=== PATIENT | female | born 1940 | race Caucasian/White ===

== ENCOUNTER 2016-10-27 20:15 | Inpatient (IN) | payer MEDICARE, OTHER ==
[~2016-10-27] VITALS: Ht 160 cm; Wt 62.0 kg
[2016-10-27] VITALS (9 sets, daily range): BP systolic 82–109; BP diastolic 47–70; PULSE 68–77; RESP 14–24; O2SAT 90
[~2016-10-27 20:15] MED LIST: AMT25T PO; ASPI-973 PO; ATRV10T PO; Atropine 1 mg/10 mL (Code) Syringe ONE; EPINEPHrine 0.1 mg/mL 10 mL Syringe ONE; GLUC100016 PO; Heparin 1,000 Unit/mL 10 mL Inj ONE; Heparin 1,000 Units/500 mL NS Premix IV ONE; Heparin 10,000 Unit/1,000 mL NS Premix IV ONE; LOSA25TA21 PO; METF1000 PO; Nitroglycerin 50,000 mcg/250 mL D5W Premix IV ONE; OMEG-86 PO; Phenylephrine/NS-PF 100 mCg/mL 5 mL Syringe IVPUSH ONE; RANI150T11 PO; SYN75 PO
[2016-10-27] MEDS ORDERED: NitroPRUSSIDE 25,000 mCg/mL 2 mL Inj IV ONE (20:21)
[2016-10-27] MEDS ORDERED: 0.9% Sodium Chloride 250 ML ONE (20:21)
--- NOTE | 2016-10-27 20:31 | ED.REPORT ---
HPI-Chest Pain 40 and Over Date of Service Oct 27, 2016 ED Provider: Dr. Pike The pt is a 76 y/o female with a hx of angina (in 2009, no sx since), HTN, and Type II DM who presents to the ED via EMS complaining of sudden left sided chest pain that radiates to her left arm and left side of the neck, onset an hour ago. The pt began experiencing the pain when her left TM ruptured at urgent care, where she had gone complaining of earache, onset 4 hours ago. She was sent to [facility] where her ECG showed ST elevation. As per the EMS, the pt was given metoprolol, morphine and heparin en route which decreased her pain significantly. In the ED, the pt reports mild pressure on her torso and persistent left sided neck pain. The pt takes baby aspirin. Asprin, heparin and metoprolol given at [facility] ED before transfer. [facility] ECG shows NSR, ant/lat ST elevation consitent with STEMI. Nursing Notes Stated Complaint: STEMI Chief Complaint: Chest Pain Nursing Notes Reviewed: Yes Allergies: Coded Allergies: ciprofloxacin (Verified Allergy, Severe, itching all over, throat closing. , 04/29/15) Scheduled Amitriptyline (Amitriptyline) 25 Mg Tab 25 MG PO HS Aspirin (Aspirin) 81 Mg Tablet 81 MG PO DAILY Atorvastatin (Lipitor) 10 Mg Tab 10 MG PO DAILY Glucosamine Sulfate 2Kcl (Glucosamine) 1,000 Mg Tablet 1,000 MG PO DAILY Levothyroxine (Synthroid) 75 Mcg Tablet 75 MCG PO DAILY Losartan Potassium (Losartan Potassium) 25 Mg Tablet 25 MG PO DAILY Metformin (Glucophage) 1,000 Mg Tablet 1,000 MG PO BID Huntington-3S/Dha/Epa/Fish Oil/D3 (Fish Oil + D3 Softgel) 1 Each Capsule 1 EACH PO DAILY Ranitidine (Zantac) 150 Mg Tablet 150 MG PO DAILY General Time Seen by MD: 20:15 Chief Complaint Chest pain Hx Obtained From: Patient, EMS Arrived By: Ambulance Sudden in Onset?: Yes Onset Occurred: 1 - 4 hours ago Symptom Duration: Since onset Location: : Chest left Quality: Painful Radiation: : Arm left: Neck Severity: Current: No pain currently Severity: Maximum: Severe Recent Healthcare: No recent doctor visit Past Medical History Past Medical History Angina in 2006 On Estring Reports: Diabetes mellitus, Hypertension Past Surgical History Resection in 2006 for Diverticulitis Foot Neck Reports: Appendectomy Smoking History Never Smoker Review of Systems Reports: left TM rupture Cardiovascular: Reports: Chest pain Musculoskeletal: Reports: Extremity pain (left arm), Neck pain (left sided) Complete sys rev & neg: except as marked. Ears / Nose / Throat: Reports: Earache left Physical Exam Initial Vital Signs Vital Signs (First) Date Time Temp Pulse Resp B/P Pulse Ox O2 Delivery O2 Flow Rate FiO2 10/27/16 20:18 37 77 24 109/70 90 Room Air Initial VS: Reviewed Head / Eyes: Atraumatic, Normocephalic Neck: Supple, Non-tender, Full range of motion Extremities: Vascular intact, Neuro intact, No swelling, No tenderness Skin: Warm, Dry, No cyanosis Neurologic: Alert, Oriented, Nonfocal General/Constitutional: Awake, Alert, Well appearing, Cooperative Diaphoretic Respiratory / Chest: Atraumatic, Breath sounds NL, Breath sounds = bilat, No respiratory distress, No rales, No rhonchi, No wheezing Cardiovascular: Heart rate NL, Regular rhythm, Heart sounds NL, No gallop, No murmurs, No rubs, Peripheral circulation NL, Pulses = bilaterally, No gross BP differential Abdomen: Atraumatic, Soft, Non-tender, McBurney's non-tender, No guarding, No rebound, BS normoactive, No distention ENT: Atraumatic, Mucous membranes moist, Pharynx NL Acute left TM rupture. Interpretation & Diagnostics ECG Interpretation ECG Interpretation: ST elevation in AVL, V2 through V5 Sinus rhythm. Rate 74. Time: 20:25 Interpreted by: ED physician Re-Eval/Medical Decision Source of Hx: Old records Consultation #1: Referral / Consult Name: Vishal Nolen MD Consulted With: Cardiology Call Returned at: 19:46 Photolithographic Stripper: Will see patient Note: Dr. Noeln agrees it is a STEMI. He will see the pt. Consultation #2: Referral / Consult Name: Vishal Nolen MD Consulted With: Cardiology Call Returned at: 20:35 Photolithographic Stripper: Requested research lab assistant Note: Dr. Nolen in the ED. Pt taken to research lab assistant Counseled Regarding: Diagnosis Discharge & Departure Primary Impression: STEMI (ST elevation myocardial infarction) Involved coronary artery: unspecified coronary artery Qualified Code: I21.3 - ST elevation (STEMI) myocardial infarction of unspecified site Disposition: ADMITTED TO HOSPITAL Referrals: Madyson Hdez PA-C (PCP) Crit Care Except Billable Proc Time Spent: 30-74 minutes Services Performed: Patient management by me, Time spent at bedside, Reviewing test results, Reviewing imaging, Discussing patient care, Documentation in record Critical Care Notes: I saw this patient immediately on arrival and was involved in her care through the duration of he ED stay. Scribe Attestation Portions of this note were transcribed by Kenia Ritter. I,, personally performed the history,physical exam and medical decision-making;I reviewed and confirmed the accuracy of the information in the transcribed note. Signed by Anastasiya Bradley. 10/27/16 copies to: Madyson Hdez PA-C, Donald L MD Oct 27, 2016 20:31 Kenia Ritter Oct 27, 2016 20:36
[2016-10-27] MEDS ORDERED: Ondansetron 2 mg/mL 2 mL Inj ONE (20:42)
[2016-10-27] MEDS ORDERED: fentaNYL-PF 50 mCg/mL 2 mL Inj ONE (20:50)
--- NOTE | 2016-10-27 21:48 | CS94 ---
[address] [address] DIAGNOSTIC CARDIAC CATHETERIZATION PATIENT: MARLINE MOMIN I : 1940 MR#: [id number] ADMIT: 10/27/2016 JOB ID: [id number] SERVICE DATE: 10/27/2016 PROCEDURE: Selective right and left coronary angiography, left heart catheterization. INDICATION: Acute coronary syndrome. PROCEDURAL DETAILS: The reader and the coders are referred to the procedure log for complete details. Briefly, a 6-Armenian system, right femoral approach. ANGIOGRAPHIC FINDINGS: 1. Right coronary artery is dominant, free of any significant disease. Mild luminal irregularities are noted. 2. LAD transapical vessels. Mild luminal irregularities of 10% to 20% in the mid segment past the second major diagonal. No critical stenosis is noted. 3. Circumflex is a nondominant, small vessel free of any significant disease. 4. Left heart catheterization revealed an LVEDP that ranged from 27-30. Hand injection showed hypercontractile basal constrictors with the distal half of the LV ring akinetic to dyskinetic suggestive of stress cardiomyopathy. In summary, no significant fixed epicardial coronary artery disease.
--- NOTE | 2016-10-27 21:57 | CONS ---
[address] [address] CONSULTATION REPORT PATIENT: MARLINE MOMIN I : 1940 MR#: [id number] ADMIT: 10/27/2016 JOB ID: [id number] DATE OF SERVICE: CHIEF COMPLAINT: Chest pain. REQUESTED BY: Yosef Pike MD. HISTORY OF PRESENT ILLNESS: This patient was in her usual state of health until about quarter to seven today. She went to the urgent care because of earache. She started having chest pain. She was transferred to [facility] ED where an EKG was suggestive of acute anterolateral TN. Those EKGs were faxed to me. One of the two EKGs showed ST-segment elevation in I and aVL with slight ST elevation in V2. lab manager team was activated. At the time of my interview in the ED, the patient's pain has settled. She was pain free. In the ED, she was quite diaphoretic. She also complained of nausea. The patient states about 10 years ago, she was diagnosed with angina. She does not have any usual cardiac followup. This chest discomfort started today. She has not been having exertional- type symptoms in the preceding weeks and months. She is moderately active. She denies any orthopnea, PND. PAST MEDICAL HISTORY: Significant mainly for diabetes and hypertension. MEDICATIONS AT HOME: Metformin, losartan. She takes a pill for cholesterol. ALLERGIES: CIPRO. REVIEW OF SYSTEMS: Comprehensive review of system was done. Pertinent negatives are no upcoming surgeries. No TIA or strokes. No GI bleeding. Occasionally she gets urinary bleeding, but she was told this was secondary to an urinary tract infection. FAMILY HISTORY: Negative for premature coronary artery disease. Her brother has had an EP procedure done. EXAMINATION: Mildly distressed. Somewhat anxious elderly lady. Pulse 90, blood pressure 110/70. Neck supple. No JVD. Chest: Clear. Heart sounds S1, S2, regular. Abdomen soft. Extremities: Negative for CCE, 2+ femoral pulses bilaterally. 911 EMERGENCY DISPATCHER: Alert and oriented. EKG as described. The repeat EKG done at [facility] showed normalization of her ST-segment elevation. ASSESSMENT AND PLAN: My initial assessment for this patient was that she was having a stuttering infarct. She probably had a ruptured plaque which led to the ST-segment elevation. After discussing with the patient and explaining the pros and cons, she agreed for proceeding ahead with urgent angiography. Angiography did not reveal any significant epicardial coronary artery disease. The details about the angiogram are reported elsewhere. Her left ventriculogram, however, was highly suggestive of stress cardiomyopathy. The patient will be admitted to the hospitalist service. In addition to her losartan, I would recommend adding beta-blockers. Rest of the management is per full discretion of hospitalist team and Cardiology will follow along with. An echo should be requested tomorrow and perhaps a repeat one within 3-5 days.
[2016-10-27] MEDS ORDERED: 0.9% Sodium Chloride 1,000 ML IV PRN (22:11)
[2016-10-27] MEDS ORDERED: Ondansetron 2 mg/mL 2 mL Inj IVPUSH PRN (22:25)
[2016-10-27] MEDS ORDERED: Polyethylene Glycol (PEG) 17 Gm Powder PO PRN (22:25)
[2016-10-27] MEDS ORDERED: Alum-Mag Hydrox-Simeth 30 mL Suspension PO PRN (22:25)
[2016-10-27] MEDS ORDERED: Glucose 40% Oral Gel 15 Gm Tube PO PRN (22:30)
[2016-10-27] MEDS ORDERED: Dextrose 10% 250 ML IV PRN (22:35)
[2016-10-27] MEDS ORDERED: Atropine 1 mg/10 mL (Code) Syringe IVPUSH PRN (22:40)
[2016-10-27] MEDS: Ondansetron 2 mg/mL 2 mL Inj IVPUSH PRN ×2 (22:45→23:41)
[2016-10-27] MEDS: Insulin LISPRO 300 Unit/3 mL Inj SUBQ SCH (23:28)
[2016-10-27 23:33] LABS: TROPONIN T 0.589 ug/L (0.0-0.011)
[2016-10-27] MEDS: 0.9% Sodium Chloride 250 ML IV PRN (23:41)
--- NOTE | 2016-10-27 23:49 | PCM.HPMED ---
Subjective Date of Service Oct 27, 2016 Primary Provider: Admitting Physician: Delmar Skelton MD Primary Care Physician: Madyson Hdez PA-C Attending Physician: Delmar Skelton MD Admit Status: From the Emergency Department, [facility] Telemetry Chief Complaint: left ear pain, chest pressure, SOB History of Present Illness: Ms. Lesly Wilson is an extremely pleasant 76-year-old female with a history of type II diabetes with polyneuropathy, hypothyroidism, hypertension, and hypothyroidism, presented to her PCP, then transitioned to [facility], with chief complaint of sudden onset of left-sided chest pain with radiation to her left arm and left side of neck, which followed the rupture of her left tympanic membrane. Initial EKG performed at [place] revealed ST elevation, patient was immediately given metoprolol, morphine, and heparin. Stat cath completed at our facility revealed a likely etiology of her chest pain as stress -induced cardiomyopathy, without any evidence of coronary artery disease. She was admitted for evaluation and treatment of stress-induced cardiomyopathy in the setting of suspected underlying otic infection. - Hospital day 1 Patient states that she has been experiencing earache throughout the day of admission, and was told by her primary care provider that she was suffering from a viral infection. Subsequently, she noticed the pressure within her left ear began to increase, reports a fluidlike sensation, and then reports that her tympanic membrane had ruptured. Immediately following this instance, she notes that she began to experience left-sided chest pain with radiation to left arm and left-side of neck. Patient also noted diaphoresis, nausea; denied any associated fever, chills. Denies any recent exposure to water sources, such as ocean or lakes, denies any recent travel at elevated altitudes, and denies any recent trauma to her left ear. Immediately after experiencing the rupture of her tympanic membrane, she reports that she began to bleed from her ear canal. She admits to mild URI symptoms, and she states that her was recently ill with similar symptoms. She was received as a transfer from [facility] to our emergency department , where cardiology proceeded with a stat catheterization. In route, she was reported to have received 5 mg metoprolol 3, morphine sulfate, and heparin. Stat cath did not reveal any coronary artery disease, and likely diagnosis is stress-induced cardiomyopathy based on the akinetic findings of the apex. She was transferred to [facility] in stable condition from the [facility], and was in stable condition at time of admission. Review of Systems: Complete review of systems obtained, pertinent positives and negatives as noted in history of present illness Allergies Coded Allergies: ciprofloxacin (Verified Allergy, Severe, itching all over, throat closing. , 04/29/15) Home Medications Medications obtained from PCP note dated 10/27/2016: Gabapentin 800 mg daily Ambien 5 mg nightly Carisoprodol 350 mg every 8 hours as needed for muscle pain Coenzyme Q 10 100 mg daily Cozaar 25 mg Estring vaginal insert 2 mg as directed Folic acid 400 g daily Glucosamine/chondroitin 1500/1200 mg complex daily Latanoprost eyedrops 2.5 ml one drop each eye once a day Metformin 1000 mg twice daily Daily multivitamin Nitroglycerin 0.4 mg sublingual as needed Probiotic daily Synthroid 75 g 1 tablet daily on empty stomach Tumor or 100 mg twice daily Acetaminophen 325 mg as needed every 6 hours for pain Vitamin D 1000 international units daily Aspirin 81 mg daily Atorvastatin 10 mg nightly PMH Reported: *Participate Post menopausal atrophic vaginitis Essential hypertension Hypothyroidism Hyperlipidemia Nontoxic goiter Type II diabetes mellitus with neuropathy Dysphagia Surgical History Bowel resection with complete anastomosis secondary to diverticulitis Appendectomy Family History Report: A strong family history of diabetes in multiple family members; father at age 83 secondary to Hodgkin's lymphoma; mother at age 79 secondary to emphysema; brother is reported to have an unspecified tachycardia, whom have completed intervention, which sounds similar to an ablation. Patient is uncertain of the details regarding the diagnosis of procedure Social History Hx Alcohol Use: No Hx Substance Use: No Hx Tobacco Use: Yes Smoking Status: Former Smoker (quit many years ago) Living Arrangement: with Family (; local) Exam Vital Signs Vital Sign - Last Date Time Temp Pulse Resp B/P Pulse Ox O2 Delivery O2 Flow Rate FiO2 10/27/16 21:46 36.5 76 17 97/66 90 Nasal Cannula 3.00 Exam General: Alert and oriented 3; pleasant woman resting supine in bed in no acute distress Ears: Right ear unremarkable with some cerumen within canal no evidence of external trauma; left ear is no evidence of external trauma, canal dried blood noted, no pain with mobilization of pinna, no exudate noted, no clear direct visualization of perforation secondary to remaining cerumen and dried blood HENT: Atraumatic, normocephalic, sclera anicteric, membranes moist Neck: Full range of motion without pain Cardiac: Regular rate and rhythm at time of examination without any appreciable murmurs Respiratory: Equal and adequate airflow all aquino without any wheeze or rhonchi ; no use of accessory muscles Chest: Atraumatic without any reproducible pain with palpation Abdomen: Soft, nontender, nondistended Extremities: No edema appreciated; right leg in soft restraint Skin: Warm and dry MSK: 5/5 strength 4/4 extremities at major joints of the shoulder on upper left ; right lower extremity restricted by restraint Neuro: Cranial nerves II-XII grossly intact, speech without slur, facial expressions equal and symmetric Psych: Appropriate mood, affect, and responses to questions; good insight and judgment Assessment & Plan Ms. Lesly Wilson is an extremely pleasant 76-year-old female with a history of type II diabetes with polyneuropathy, hypothyroidism, hypertension, and hypothyroidism, presented to her PCP, [facility], with chief complaint of sudden onset of left-sided chest pain with radiation to her left arm and left side of neck, which followed the rupture of her left tympanic membrane. Initial EKG performed at [place] revealed ST elevation, patient was immediately given metoprolol, morphine, and heparin. Stat cath completed at our facility revealed a likely etiology of her chest pain as stress-induced cardiomyopathy. She was admitted for evaluation and treatment of stress- induced cardiomyopathy in the setting of suspected underlying otic infection. - Hospital day 1 Stress-induced cardiomyopathy, acute, present on admission, under evaluation - CC: Left-sided chest pain with radiation to left upper extremity and neck; stat EKG was indicative of ST elevation in leads V2-V5 - Stat cath: 10/27/2016 revealed findings indicative of stress-induced cardiomyopathy - Cardiology recommendations: Continue losartan, add beta arvind, echo tomorrow , with repeat echo in approximately 3-5 days - Echo for 10/28/2016 ordered - Initiation of carvedilol 6.125mg daily - Continue ASA 81mg daily, losartan 50mg daily - Possible etiologies: underlying infection, endocrine aberrancy; eval thyroid and treat infxn/otitis Left tympanic membrane rupture, acute, present on admission, under evaluation - Patient had evidence of blood within left ear canal - Patient reports URI/viral infection as etiology, as discussed with her primary care - We will obtain respiratory swab to further delineate viral versus bacterial etiology for her vague/mild URI sx - Also initiation of Augmentin x14d, as pt is diabetic, risk for pseudomonas otitis - No otic ofloxacin secondary to pt allergy to fluoroquinolones - Strong consideration of ENT referral for prompt/stat FU when discharged - Pt reports established with Dr. Cruz in [place]- pt would like to be seen by his practice if possible - CBC with PCT in am History of diabetes with peripheral nephropathy, non-insulin using, chronic, presumed stable - Home medications include metformin - Holding metformin during hospitalization - Institution of low-dose correctional scale - Gabapentin 800 mg nightly Hypertension, chronic, presumed stable - We will resume home medications, including losartan, and initiation of metoprolol secondary to stress-induced cardiomyopathy treatment - Resume home medications when reconciliation complete and when appropriate Insomnia, chronic, presumed stable - Patient reports new medication of Ambien to help with sleep aid - Due to patient's naivety to medication, we will not initiate this medication during this hospitalization - Attempt gabapentin, and other modalities for sleep Med rec not yet completed at time of admission PRN fever, bowel, nausea, pain DVT: Hep gtt per cardiology; transition to subcutaneous when appropriate Diet: Heart/carb GI: H2B IVF: NS 100 Code: FULL CODE Patient status: Patient is admitted under inpatient status with expected length of stay greater than 2 midnights due to severity of presenting symptoms, risk of adverse event, and complexity of treatment plan. Pain Evaluation: Adequate Pain Control GI Prophylaxis: H2 arvind VTE Prophylaxis: Other (hep gtt) Resuscitation Status: CPR: Attempt Resuscitation Attending Statement The patient was seen and examined together with house staff on 10/27/2016 and I agree with the history, exam and plan as outlined in the note above. Tasha Jean Baptiste DO Oct 27, 2016 22:23 Rena Liz DO Oct 28, 2016 04:20
[2016-10-27] MEDS ORDERED: Albuterol 2.5 mg/3 mL Inhalation Solution NEB PRN (23:55)
[2016-10-28] VITALS (18 sets, daily range): BP systolic 96–124; BP diastolic 48–94; PULSE 71–103; RESP 14–26; O2SAT 89–100
[2016-10-28] MEDS ORDERED: Heparin Initial Bolus IVPUSH ONE (01:00)
[2016-10-28] MEDS: Heparin 25K Unit/500mL 0.45 NS 25,000 UNIT in IV Premix 1 EACH IV SCH (01:15)
[2016-10-28] MEDS ORDERED: MULT-666 PO (03:47)
[2016-10-28] MEDS ORDERED: NITR0.4T38 SL (03:47)
[2016-10-28] MEDS ORDERED: CHOL100045 PO (03:47)
[2016-10-28] MEDS ORDERED: ESTR1VAG VG (03:47)
[2016-10-28] MEDS ORDERED: SOMA350 PO (03:47)
[2016-10-28] MEDS ORDERED: LACT1CAP73 PO (03:47)
[2016-10-28] MEDS ORDERED: tumeric PO (03:47)
[2016-10-28] MEDS ORDERED: GLUC-120 PO (03:47)
[2016-10-28] MEDS ORDERED: FOLI0.4T2 PO (03:47)
[2016-10-28] MEDS ORDERED: UBID1CAP52 PO (03:47)
[2016-10-28] MEDS ORDERED: lantanoprost OCULAR (03:47)
[2016-10-28] MEDS ORDERED: ACET325T51 PO (03:47)
[2016-10-28 04:25] LABS: BASOPHILS % (AUTO) 0.1 % (0-3); EOSINOPHILS % (AUTO) 0.1 % (0-5); MONOCYTES % (AUTO) 6.2 % (4-12); Mean Corpuscular Hemoglobin 29.8 pg (27.0-35.0); Mean Corpuscular Volume 89.4 fL (81-100); NEUTROPHILS % (AUTO) 73.2 % (40-74); Platelet Count 273 bil/L (150-400)
[2016-10-28 04:43] LABS: APPEARANCE,URINE CLEAR (CLEAR,HAZY); COLOR,URINE YELLOW (YELLOW); OCCULT BLOOD,URINE NEGATIVE (NEGATIVE); PH,URINE 6.5 (5.0-8.0); UROBILINOGEN,URINE NORMAL (NORMAL)
[2016-10-28 04:56] LABS: Phosphorus 3.3 mg/dL (2.5-4.9)
[2016-10-28] MEDS: Heparin Protocol Boluses IVPUSH PRN ×2 (08:42→19:59)
[2016-10-28] MEDS: Insulin LISPRO 300 Unit/3 mL Inj SUBQ SCH ×4 (08:44→22:29)
[2016-10-28 09:19] LABS: TROPONIN T 0.55 ug/L (0.0-0.011)
[2016-10-28] MEDS: Amoxicillin-Clav 875-125 mg Tablet PO SCH ×2 (09:47→19:59)
[2016-10-28] MEDS: Ondansetron 2 mg/mL 2 mL Inj IVPUSH PRN (09:49)
--- NOTE | 2016-10-28 09:54 | DRSVH ---
PROCEDURE: X-RAY CHEST ONE VIEW, PORTABLE ([id number]) INDICATIONS: dropping O2 sats TECHNIQUE: One view of the chest was acquired. COMPARISON: None. FINDINGS: Surgical changes and devices: None. Lungs and pleura: Upper lobe airspace disease is identified. There is a prominent vascular markings within the perihilar regions. Curly B-lines are noted along the lateral margins of the lower lobes. There may be a trace left-sided pleural effusion. There is no pneumothorax. Mediastinum: Mediastinal contours appear normal. Heart size is normal. Bones and chest wall: No suspicious bony lesions. Overlying soft tissues appear unremarkable. IMPRESSION: 1. Upper lobe airspace disease is most suggestive of pneumonia. Hypersensitivity pneumonitis or aty pical presentation of pulmonary edema may also have this appearance. 2. Moderate pulmonary vascular congestion. Chari B-lines are suggestive of pulmonary edema. Pleas e correlate clinically. Dictated by: Rolf Disla M.D. on 10/28/2016 at 8:48 Approved by: Rolf Disla M.D. on 10/28/2016 at 8:53
[2016-10-28] MEDS ORDERED: Furosemide 10 mg/mL 2 mL Inj IVPUSH ONE ×3 (10:05→16:30)
[2016-10-28] MEDS ORDERED: Promethazine Inj 12.5 MG in Dextrose 5%-Pha MIX 50 ML IV PRN (10:35)
--- NOTE | 2016-10-28 11:19 | ABG ---
DateTimeAnalyzed 11:11:00 -_ pH ____7.397 - 7.350 7.450 pCO2 ___35.5__ -mmHg 35.0 45.0 pO2 ___52.2__ -mmHg 69.0 116 HCO3- ___21.4__ -mmol/L 22.0 26.0 ABE ___-2.3__ -mmol/L -2.0 2.0 tHb ___13.5__ -g/dL 12.0 18.0 O2Hb ___84.6__ -% COHb ____0.7__ -% 0.0 1.5 MetHb ____1.2__ -% 0.4 1.5 sO2 ___86.2__ -% FIO2 __100.0__ -% Drawn By NB - Date/Time Notified____ 11:18:00 -_ Oxygen Device 1 OXYMASK @15 - Notified By NB - Not[facility] Whom ___[facility] - B 758 -mmHg tO2 ___16.1__ -Vol% Juanito test _Positive -
--- NOTE | 2016-10-28 13:14 | DRSVH ---
[facility] [address] [place] [address] Echocardiogram Report Name: MARLINE MOMIN Alexx e: 10/28/2016 Height: 63 in Hospital Exam Location: [facility] Weight: 143 lb Gender: Other BSA: 1.7 m2 : 1940 Age: 76 yrs BP: 111/57 mmHg Reason For Study: Chest pain, [place] Ordering Physician: Performed By: Vincent Hodges Referring Physician: JUANJOSE BETTS Interpretation Summary 1) Normal left ventricular thickness and size with severely reduced systolic function (EF 25-30%). 2) Severe global hypokinesis of the apical 2/3 of the LV. 3) No significant valvular abnormalities. 4) Compared to the Echo done 07/23/2016, LV function has decreased from normal to severely reduced on today's study. Procedure: A two-dimensional transthoracic echocardiogram with color flow and Doppler was performed. The study quality was technically adequate. Comparison is made with the echocardiogram of 07/23/16. The patient was in normal sinus rhythm during the exam. Left Ventricle: The left ventricle is normal in size. There is normal left ventricular wall thickness. Proximal septal thickening is noted. The ejection fraction is estimated to be 25-30%. There is severe global hypokinesis of the apical 2/3 of the LV. Right Ventricle: The right ventricle is grossly normal size. The right ventricular systolic function is normal. Atria: The left atrium is mildly dilated. Right atrium is small. The interatrial septum is intact with no evidence for an atrial septal defect. Mitral Valve: The mitral valve leaflets are slightly calcified. There is mild mitral regurgitation. Aortic Valve: The aortic valve is trileaflet. The aortic valve opens well. There is no aortic valve stenosis. No aortic regurgitation is present. Tricuspid Valve: The tricuspid valve is not well visualized, but is grossly normal. There is mild tricuspid regurgitation. The right ventricular systolic pressure is estimated at 34 mmHg assuming a right atrial pressure of 3 mm Hg. Pulmonic Valve: The pulmonic valve is not well visualized. There is a trace or physiologic amount of pulmonic regurgitation. Great Vessels: The aortic root is normal size. The dimensions of the ascending aorta are normal. The pulmonary artery is not well visualized, but is probably normal size. The IVC is of normal diameter and collapses greater than 50% with a sniff. This suggests a low right atrial pressure of 3 mm Hg. Pericardium/ Pleura There is no pericardial effusion. There is an anterior echo-free space consistent with a fat pad. There is no pleural effusion. MMode/2D Measurements & Calculations LA A2 area RA long axis LVOT diam: 2.0 cm EDV(MOD-sp2) AoV Openin.7 cm Ao root diam: 3.0 cm ESV(MOD-sp2) LA A4 area RA area: 7.2 cm asc Aorta Diam: 3.0 cm RA vol: 14.7 ml Ao Arch Diam (Prox EF(MOD-sp2) LA length (vol) RA : 8.8 ml/m2 Trans): 2.3 cm LA vol: 68.5 ml LA vol index IVC diam: 2.2 cm Doppler Measurements & Calculations Ao V2 max MV E max chapincito MV E/A: 0.63 TR max [place] : 90.8 cm/sec : 42.1 cm/sec Med Peak E' [place] : 278.2 cm/sec Ao max PG MV A max chap[place] TR max P.0 mmHg : 3.3 mmHg : 66.6 cm/sec E/E' med: 7.7 PA V2 max: 61.3 cm/sec Ao mean PG Lat Peak E' [place] PA mean P.96 mmHg LVOT Max [place] E/E' lat: 7.1 : 77.5 cm/sec E/e' average: 7.4 TALISHA(I,D): 2.8 cm sev ratio Ao V2 mean LV V1 max PG PA V2 mean TALISHA indexed to BSA : 66.6 cm/sec : 47.5 cm/sec (cm^2/m^2): 1.6 Ao V2 VTI LV V1 VTI PA pr(Accel) : 13.5 cm : 45.7 mmHg TALISHA(V,D): 2.6 cm2 Reading Physician:01:13 PM
--- NOTE | 2016-10-28 14:15 | PCM.PNCARD ---
Subjective Date of service Oct 28, 2016 Chief Complaint NSTEMI, heart failure History of Present Illness 76 yo W h/o DM-2 and HTN admitted with NSTEMI and newly diagnosed non-ischemic cardiomyopathy. Subjective: Patient continues to have respiratory distress. She is sleepy and mildly agitated. Exam Vital Signs Vital Sign - Last Date Time Temp Pulse Resp B/P Pulse Ox O2 Delivery O2 Flow Rate FiO2 10/28/16 12:15 Supplement Oxygen 10/28/16 12:15 36.8 93 22 114/94 93 10/28/16 08:30 10.00 Intake and Output 10/27/16 10/27/16 10/28/16 Cumulative From/Thru 15:00 23:00 07:00 10/27/16 20:18 - 10/28/16 05:14 Intake Total 932 ml 932 ml Output Total 350 ml 350 ml Balance 582 ml 582 ml Intake Oral 100 ml 100 ml IV Total 832 ml 832 ml Output Urine Total 350 ml 350 ml General appearance: in mild respiratory distress, elderly, pleasant, cooperative HEET: Normocephalic atraumatic, no scleral icterus, tongue midline, mucous membranes moist Neck: supple Cardiovascular: RRR, normal S1 and normal S2, no murmurs/ rubs/gallops, PMI nondisplaced, no JVD, no peripheral edema Respiratory: Fair aeration, coarse b/l Abdomen: Soft, nontender, nondistended, + bowel sounds Neuro: Alert, no facial droop, tongue midline, no gross motor deficits Lab and Diagnostics Labs Troponin 0.589 on admission (10/27/2016) and 0.550 on 10/28/2016 Result Diagram: 10/28/16 0355 10/28/16 0805 X-Rays, CTs and MRIs Echo 10/28/2016: 1) Normal left ventricular thickness and size with severely reduced systolic function (EF 25-30%). 2) Severe global hypokinesis of the apical 2/3 of the LV. 3) No significant valvular abnormalities. 4) Compared to the Echo done 07/23/2016, LV function has decreased from normal to severely reduced on today's study. Cath 10/27/2016: 1. Right coronary artery is dominant, free of any significant disease. Mild luminal irregularities are noted. 2. LAD transapical vessels. Mild luminal irregularities of 10% to 20% in the mid segment past the second major diagonal. No critical stenosis is noted. 3. Circumflex is a nondominant, small vessel free of any significant disease. 4. Left heart catheterization revealed an LVEDP that ranged from 27-30. Hand injection showed hypercontractile basal constrictors with the distal half of the LV ring akinetic to dyskinetic suggestive of stress cardiomyopathy. Assessment & Plan Assessment 76 yo W h/o DM-2 and HTN admitted with NSTEMI and newly diagnosed non-ischemic cardiomyopathy and NSTEMI: # Acute systolic heart failure: Etiology is nonischemic cardiomyopathy as coronary angiography did not show any obstructive coronary artery disease. Wall motion abnormalities could be suggestive of takotsubo cardiomyopathy but there is no clear stress event prior to this episode. LVEF 25-30%. Patient's chest x-ray showed significant volume overload and this is consistent with her respiratory distress. She is NYHA class IV, ACC stage III. Plan: - Give furosemide 20 mg IV 1 now and re-dose PRN q3-4 hours. Goal to be net negative 2L in 24 hours - Start spironolactone 12.5mg daily - Continue losartan 50mg daily (hs) - Continue carvedilol 3.125mg bid - Ok to be on heparin gtt for now given high risk for LV thrombus formation # Minimal CAD: - Continue aspirin 81mg daily - Continue atorvastatin 10mg qhs # HTN: well controlled. Meds as above. # Diabetes: defer management to primary team. Problems: Pain Evaluation: Adequate Pain Control GI Prophylaxis: H2 arvind VTE Prophylaxis: Other (hep gtt) VTE Mechanical Devices: Intermittant Pneumatic CD Resuscitation Status: CPR: Attempt Resuscitation Vishal Nolen MD Oct 28, 2016 14:15
--- NOTE | 2016-10-28 14:30 | ABG ---
DateTimeAnalyzed 14:22:00 -_ pH ____7.454 - 7.350 7.450 pCO2 ___32.3__ -mmHg 35.0 45.0 pO2 ___75.1__ -mmHg 69.0 116 HCO3- ___22.3__ -mmol/L 22.0 26.0 ABE ___-0.4__ -mmol/L -2.0 2.0 tHb ___13.7__ -g/dL 12.0 18.0 O2Hb ___93.0__ -% COHb ____0.7__ -% 0.0 1.5 MetHb ____1.3__ -% 0.4 1.5 sO2 ___94.9__ -% FIO2 __100.0__ -% Drawn By gj - Date/Time Notified____ 14:29:00 -_ Spontaneous_RR ___24.0__ -b/min Liter_Flow ___50.0__ -L/min Oxygen Device 1 HIGH FLOW - Notified Whom HASANDRAS - B 757 -mmHg tO2 ___17.9__ -Vol% Juanito test _Positive -
[2016-10-28 16:07] LABS: TROPONIN T 0.538 ug/L (0.0-0.011)
--- NOTE | 2016-10-28 18:05 | PCM.PNMED ---
Subjective Date of Service Oct 28, 2016 Subjective Ms. Lesly Wilson is an extremely pleasant 76-year-old female with a history of type II diabetes with polyneuropathy, hypothyroidism, hypertension, and hypothyroidism, presented to her PCP, [facility], with chief complaint of sudden onset of left-sided chest pain with radiation to her left arm and left side of neck, which followed the rupture of her left tympanic membrane. Initial EKG performed at [place] revealed ST elevation, patient was immediately given metoprolol, morphine, and heparin. Stat cath completed at our facility revealed a likely etiology of her chest pain as stress-induced cardiomyopathy. She was admitted for evaluation and treatment of stress- induced cardiomyopathy in the setting of suspected underlying otic infection. Patient underwent a stat cardiac catheterization last night and returned to floor without complications. This morning, patient complained of SOB and her oxygen saturation was dropping to the mid 80s. Auscultation of the lungs revealed diffuse crackles bilaterally. Stat CXR revealed pulmonary edema and possible pneumonia of the upper lobes. We diuresed the patient with Lasix. On ROS, patient complained of SOB, chest tightness, and nausea. Exam Vital Signs Vital Sign - Last Date Time Temp Pulse Resp B/P Pulse Ox O2 Delivery O2 Flow Rate FiO2 10/28/16 16:26 Supplement Oxygen 10/28/16 16:26 37.2 103 21 106/58 94 10/28/16 14:20 50 100 Intake and Output 10/27/16 10/27/16 10/28/16 Cumulative From/Thru 15:00 23:00 07:00 10/27/16 20:18 - 10/28/16 05:14 Intake Total 932 ml 932 ml Output Total 350 ml 350 ml Balance 582 ml 582 ml Intake Oral 100 ml 100 ml IV Total 832 ml 832 ml Output Urine Total 350 ml 350 ml Exam General: Patient is lying comfortably on bed, AAOX3, not in acute distress, cooperative and pleasant. HEENT: head normocephalic and atraumatic, PERRLA, EOMI, no scleral icterus, noninjected conjunctiva, evidence of nasal congestion, left ear with crusted blood on the external ear canal, evidence of ruptured tympanic membrane Neck: neck supple, non-tender, no lymphadenopathy, trachea midline, no JVD CV: regular rate and rhythm, s1 and s2 heard, no murmur, radial pulses 2+ and equal bilaterally, no rubs murmurs or gallops, no edema Lungs: Diffuse crackles bilaterally Abdomen: normoactive bowel sounds on 4Q, soft, non-distended, non-tender to palpation, no organomegally, Skin: warm and dry Musculoskeletal: 5/5 UE and LE strength bilaterally, full ROM bilaterally Neuro: Grossly neurologically intact, cranial nerves II through XII intact, Psych: Normal mood and affect IVs and Medications Medications Reviewed: Medications were reviewed in detail Medications High risk medications include a heparin drip Lab and Diagnostics Laboratory Tests Test 10/27/16 22:52 10/28/16 03:00 10/28/16 03:55 10/28/16 04:18 Activated Partial Thromboplast Time 37.3sec (22.8-33.0) Total Creatine Kinase 145U/L (21-215) Creatine Kinase MB 17.2ng/mL (0.0-5.3) Creatine Kinase MB % 11.9% (0.0-5.0) Troponin T 0.589ug/L (0.0-0.011) Urine Legionella pneumophilia Ag Negative (Negative) White Blood Count 12.7th/mm3 (3.8-10.1) Red Blood Count 3.96mil/mm3 (3.90-5.20) Hemoglobin 11.8g/dL (12.0-15.6) Hematocrit 35.4% (35.0-46.0) Mean Corpuscular Volume 89.4fL (81-100) Mean Corpuscular Hemoglobin 29.8pg (27.0-35.0) Mean Corpuscular Hemoglobin Concent 33.3% (32.0-37.0) Red Cell Distribution Width 13.1% (12.3-15.4) Platelet Count 273bil/L (150-400) Neutrophils (%) (Auto) 73.2% (40-74) Lymphocytes (%) (Auto) 19.9% (14-46) Monocytes (%) (Auto) 6.2% (4-12) Eosinophils (%) (Auto) 0.1% (0-5) Basophils (%) (Auto) 0.1% (0-3) Sodium Level 136mEq/L (134-144) Potassium Level 5.0mEq/L (3.5-5.2) Chloride Level 101mEq/L (97-108) Carbon Dioxide Level 20mmol/L (18-29) Blood Urea Nitrogen 20mg/dL (8-27) Creatinine 0.57mg/dL (0.57-1.00) Estimat Glomerular Filtration Rate 148mL/min (>59) Glucose Level 244mg/dL (60-99) Calcium Level 8.6mg/dL (8.5-10.1) Phosphorus Level 3.3mg/dL (2.5-4.9) Magnesium Level 2.0mg/dL (1.6-2.6) Total Bilirubin 0.2mg/dL (0.0-1.2) Aspartate Amino Transf (AST/SGOT) 32U/L (0-50) Alanine Aminotransferase (ALT/SGPT) 27U/L (0-32) Alkaline Phosphatase 90U/L (25-165) Total Protein 6.2g/dL (6.4-8.4) Albumin 3.7g/dL (3.4-5.0) Procalcitonin 0.07ng/mL (0.00-0.08) Thyroid Stimulating Hormone (TSH) 1.050uIU/mL (0.450-4.500) Urine Color Yellow (YELLOW) Urine Appearance Clear (CLEAR,HAZY) Urine pH 6.5 (5.0-8.0) Urine Specific [place] 1.010 (1.003-1.035) Urine Protein Negativemg/dL (NEG,TRACE) Urine Glucose (UA) Negativemg/dL (NEGATIVE) Urine Ketones Negativemg/dL (NEGATIVE) Urine Occult Blood Negative (NEGATIVE) Urine Nitrite Negative (NEGATIVE) Urine Bilirubin Negative (NEGATIVE) Urine Urobilinogen Normalmg/dL (NORMAL) Urine Leukocyte Esterase Small (NEGATIVE) Urine RBC 0-2/hpf (0-2) Urine WBC >50/hpf (0-5) Urine Epithelial Cells Moderate/hpf (NONE-MOD) Urine Crystals None seen (NONE SEEN) Urine Bacteria Few/hpf (NONE-FEW) Urine Hyaline Casts None/lpf (NONE) Urine Granular Casts None seen (NONE SEEN) Urine Waxy Casts None seen (NONE SEEN) Urine Red Blood Cell Casts None seen (NONE SEEN) Urine White Blood Cell Casts None seen (NONE SEEN) Urine Mucus None seen (None Seen) Urine Trichomonas None seen (NONE SEEN) Urine Yeast None (NONE SEEN) Urinalysis Comment None Urine Culture Reflexed Indicated Test 10/28/16 07:10 10/28/16 08:05 10/28/16 13:22 10/28/16 14:31 Activated Partial Thromboplast Time 36.4sec (22.8-33.0) 57.4sec (22.8-33.0) D-Dimer < 0.50mg/L FEU (<0.50) Sodium Level 134mEq/L (134-144) Potassium Level 4.9mEq/L (3.5-5.2) Chloride Level 99mEq/L (97-108) Carbon Dioxide Level 17mmol/L (18-29) Blood Urea Nitrogen 19mg/dL (8-27) Creatinine 0.52mg/dL (0.57-1.00) Estimat Glomerular Filtration Rate 165mL/min (>59) Glucose Level 218mg/dL (60-99) Calcium Level 8.5mg/dL (8.5-10.1) Total Creatine Kinase 183U/L (21-215) 175U/L (21-215) Creatine Kinase MB 22.1ng/mL (0.0-5.3) 18.5ng/mL (0.0-5.3) Creatine Kinase MB % 12.1% (0.0-5.0) 10.6% (0.0-5.0) Troponin T 0.550ug/L (0.0-0.011) 0.538ug/L (0.0-0.011) Procalcitonin 0.13ng/mL (0.00-0.08) Test 10/28/16 14:55 10/28/16 16:41 10/28/16 19:12 Lactic Acid Level 2.9mmol/L (0.4-2.0) Hold [place] Top Tube Received (Received) Hold Urine Received (Received) Activated Partial Thromboplast Time 46.2sec (22.8-33.0) Microbiology 10/28/16 Adenovirus DNA (PCR) - Final, Complete Not Detected 10/28/16 Coronavirus 229E PCR - Final, Complete Not Detected 10/28/16 Coronavirus HKU1 PCR - Final, Complete Not Detected 10/28/16 Coronavirus NL63 PCR - Final, Complete Not Detected 10/28/16 Coronavirus OC43 PCR - Final, Complete Not Detected 10/28/16 Influenza Type A (PCR) - Final, Complete Not Detected 10/28/16 Influenza Type B (PCR) - Final, Complete Not Detected 10/28/16 Human Metapneumovirus (PCR) (ALLISON) - Final, Complete Not Detected 10/28/16 Rhinovirus (PCR)(ALLISON) - Final, Complete Not Detected 10/28/16 Parainfluenza Virus Type 1 (PCR) - Final, Complete Not Detected 10/28/16 Parainfluenza Virus Type 2 (PCR) - Final, Complete Not Detected 10/28/16 Parainfluenza Virus Type 3 (PCR) - Final, Complete Not Detected 10/28/16 Parainfluenza Virus Type 4 (NAAT) - Final, Complete Not Detected 10/28/16 Respiratory Syncytial Virus (PCR)RI - Final, Complete Not Detected 10/28/16 Chlamydia pneumoniae (PCR) - Final, Complete Not Detected 10/28/16 Mycoplasma pneumoniae DNA Detection - Final, Complete 10/28/16 Urine Culture, Received Pending Result Diagram: 10/28/16 0355 10/28/16 0805 Microbiology Microbiology ADENOVIRUS RESPIRATORY PCR Final 10/28/16-1709 Not Detected CORONOVIRUS 229E Final 10/28/16-1709 Not Detected CORONOVIRUS HKU1 Final 10/28/16-1709 Not Detected CORONOVIRUS NL63 Final 10/28/16-1709 Not Detected CORONOVIRUS OC43 Final 10/28/16-1709 Not Detected INFLUENZA A PCR Final 10/28/16-1709 Not Detected INFLUENZA B PCR Final 10/28/16-1709 Not Detected METAPNEUMOVIRUS PCR Final 10/28/16-1709 Not Detected RHINOVIRUS OR ENTEROVIRUS PCR Final 10/28/16-1709 Not Detected PARAINFLUENZA 1 PCR Final 10/28/16-1709 Not Detected PARAINFLUENZA 2 PCR Final 10/28/16-1709 Not Detected PARAINFLUENZA 3 PCR Final 10/28/16-1709 Not Detected PARAINFLUENZA 4 PCR Final 10/28/16-1709 Not Detected CONTINUED ON NEXT PAGE RUN DATE: 10/28/[address] [facility] LIVE PAGE 2 RUN TIME: 1709 Specimen Inquiry PHYSICIAN Patient: LESLY WILSON Elaine [id number] (Continued) Specimen: [id number] Collected: 10/28/16 Received: 10/28/16 (Continued) Procedure Result Verified Site RESP SYNCYTIAL VIRUS PCR Final 10/28/16-1709 Not Detected Microbiology (Continued) CHLAMDOPHILIA PNEUMONIAE PCR Final 10/28/16-1709 Not Detected MYCOPLASMA PNEUMONIAE PCR Final 10/28/16-1709 MYCO PNEUMONIAE PCR Not Detected -------- X-Rays, CTs and MRIs Chest Xray IMPRESSION: 1. Upper lobe airspace disease is most suggestive of pneumonia. Hypersensitivity pneumonitis or atypical presentation of pulmonary edema may also have this appearance. 2. Moderate pulmonary vascular congestion. Chari B-lines are suggestive of pulmonary edema. Please correlate clinically. Dictated by: Rolf Disla M.D. on 10/28/2016 at 8:48 Approved by: Rolf Disla M.D. on 10/28/2016 at 8:53 Cardiac Echo Impressions ECHO on 10/28/16 Interpretation Summary 1) Normal left ventricular thickness and size with severely reduced systolic function (EF 25-30%). 2) Severe global hypokinesis of the apical 2/3 of the LV. 3) No significant valvular abnormalities. 4) Compared to the Echo done 07/23/2016, LV function has decreased from normal to severely reduced on today's study. Reading Physician:01:13 PM Additional Diagnostics Cardiac Cath on 10/27/16 ANGIOGRAPHIC FINDINGS: 1. Right coronary artery is dominant, free of any significant disease. Mild luminal irregularities are noted. 2. LAD transapical vessels. Mild luminal irregularities of 10% to 20% in the mid segment past the second major diagonal. No critical stenosis is noted. 3. Circumflex is a nondominant, small vessel free of any significant disease. 4. Left heart catheterization revealed an LVEDP that ranged from 27-30. Hand injection showed hypercontractile basal constrictors with the distal half of the LV ring akinetic to dyskinetic suggestive of stress cardiomyopathy. In summary, no significant fixed epicardial coronary artery disease. Delmar Skelton MD 10/27/16 2508 Assessment & Plan Ms. Lesly Wilson is an extremely pleasant 76-year-old female with a history of type II diabetes with polyneuropathy, hypothyroidism, hypertension, who presented to her PCP, then [facility], with chief complaint of sudden onset of left-sided chest pain with radiation to her left arm and left side of neck, which followed the rupture of her left tympanic membrane. Initial EKG performed at [place] revealed ST elevation, patient was immediately given metoprolol, morphine, and heparin. Stat cath completed at our facility revealed a likely etiology of her chest pain as stress-induced cardiomyopathy. She was admitted for evaluation and treatment of stress-induced cardiomyopathy in the setting of suspected underlying otic infection. Non-ischemic cardiomyopathy likely Stress-induced cardiomyopathy, acute, present on admission, under evaluation - CC: Left-sided chest pain with radiation to left upper extremity and neck; stat EKG was indicative of ST elevation in leads V2-V5 - Stat cath: 10/27/2016 revealed findings indicative of stress-induced cardiomyopathy - Cardiology recommendations: Continue losartan, add beta arvind, echo today, with repeat echo in approximately 3-5 days - Per Cardiology, - Give furosemide 20 mg IV 1 now and re-dose PRN q3-4 hours. Goal to be net negative 2L in 24 hours -Initiation of carvedilol 3.125mg bid - Start spironolactone 12.5mg daily - Continue losartan 50mg daily (hs) - Continue ASA 81mg daily, losartan 50mg daily -Continue heparin gtt for now given high risk for LV thrombus formation - Possible etiologies: underlying infection, endocrine aberrancy; eval thyroid and treat infxn/otitis Acute systolic heart failure, present on admission, under evaluation -Likely seconday to nonischemic cardiomyopathy as coronary angiography did not show any obstructive coronary artery disease. - Echo revealed Normal left ventricular thickness and size with severely reduced systolic function (EF 25-30%) compared to ECHO done in 06/2016 - Give furosemide 20 mg IV 1 now and re-dose PRN q3-4 hours. Goal to be net negative 2L in 24 hours -Start spironolactone 12.5mg daily Possible Upper Lobe Pneumonia, ongoing -As evidenced by Chest X-Ray -Procalcitonin increased from 0.07 to 0.13, still less likely to be bacterial, CBC 12.7 -Repeat procalcitonin in the am -respiratory PCR analysis has been negative thus far -Continue augmentin and add azithromycin Left tympanic membrane rupture, acute, present on admission, under evaluation - Patient had evidence of blood within left ear canal - Patient reports URI/viral infection as etiology, as discussed with her primary care - We will obtain respiratory swab to further delineate viral versus bacterial etiology for her vague/mild URI sx - Also initiation of Augmentin x14d, as pt is diabetic, risk for pseudomonas otitis - No otic ofloxacin secondary to pt allergy to fluoroquinolones - Strong consideration of ENT referral for prompt/stat FU when discharged - Pt reports established with Dr. Cruz in [place]- pt would like to be seen by his practice if possible Acute hypoxemia, present on admission,ongoing -This morning, patient complained of SOB -Likely secondary to acute systolic heart failure and possible upper lobe pneumonia -Morning ABGs revealed evidence of hypoxemia, which resolved with High flow Oxygen -Continue to monitor oxygen saturation History of diabetes with peripheral nephropathy, non-insulin using, chronic, presumed stable - Home medications include metformin - Holding metformin during hospitalization - Institution of low-dose correctional scale - Gabapentin 800 mg nightly Hypertension, chronic, well-controlled - We will resume home medications, including losartan, and initiation of metoprolol secondary to stress-induced cardiomyopathy treatment - Anti-hypertensive medications as above Insomnia, chronic, presumed stable - Patient reports new medication of Ambien to help with sleep aid - Due to patient's naivety to medication, we will not initiate this medication during this hospitalization - Attempt gabapentin, and other modalities for sleep Hypothyroidism, chronic, stable -Most recent TSH 1.050 -Continue levothyroxine Med rec not yet completed at time of admission PRN fever, bowel, nausea, pain DVT: Hep gtt per cardiology; transition to subcutaneous when appropriate Diet: Heart/carb GI: H2B IVF: NS 100 Code: FULL CODE Patient status: Patient is admitted under inpatient status with expected length of stay greater than 2 midnights due to severity of presenting symptoms, risk of adverse event, and complexity of treatment plan. Pain Evaluation: Adequate Pain Control GI Prophylaxis: H2 arvind VTE Prophylaxis: Other (hep gtt) VTE Mechanical Devices: Intermittant Pneumatic CD Resuscitation Status: CPR: Attempt Resuscitation Attending Statement The patient was seen and examined together with Dr. Sr on 10/28/2016 and I agree with the history, exam and plan as outlined in the note above. . Kenzie Sr DO Oct 28, 2016 18:05 Dk Shoemaker MD Oct 29, 2016 18:43
[2016-10-29] VITALS (15 sets, daily range): BP systolic 96–120; BP diastolic 47–59; PULSE 85–105; RESP 17–20; O2SAT 91–99
[2016-10-29] MEDS: Heparin 25K Unit/500mL 0.45 NS 25,000 UNIT in IV Premix 1 EACH IV SCH (02:29)
--- NOTE | 2016-10-29 04:04 | ABG ---
DateTimeAnalyzed 03:56:00 -_ pH ____7.460 - 7.350 7.450 pCO2 ___38.8__ -mmHg 35.0 45.0 pO2 ___87.0__ -mmHg 69.0 116 HCO3- ___27.2__ -mmol/L 22.0 26.0 ABE ____3.7__ -mmol/L -2.0 2.0 tHb ___12.0__ -g/dL 12.0 18.0 O2Hb ___94.3__ -% COHb ____0.7__ -% 0.0 1.5 MetHb ____1.3__ -% 0.4 1.5 sO2 ___96.2__ -% FIO2 ___90.0__ -% Drawn By MM - Date/Time Notified____ 04:04:00 -_ Spontaneous_RR ___20.0__ -b/min Oxygen Device 1 HIGH FLOW NC - Notified By MM - Notified Whom DR CELERIAN, JASSON -__ B 759 -mmHg tO2 ___16.0__ -Vol% Juanito test _Positive -
[2016-10-29 05:35] LABS: BASOPHILS % (AUTO) 0.1 % (0-3); EOSINOPHILS % (AUTO) 0.1 % (0-5); MONOCYTES % (AUTO) 8.6 % (4-12); Mean Corpuscular Hemoglobin 29.6 pg (27.0-35.0); Mean Corpuscular Volume 85.7 fL (81-100); Platelet Count 237 bil/L (150-400)
[2016-10-29 07:16] LABS: Magnesium 1.8 mg/dL (1.6-2.6); Phosphorus 2.2 mg/dL (2.5-4.9)
[2016-10-29] MEDS: Insulin LISPRO 300 Unit/3 mL Inj SUBQ SCH ×4 (09:17→21:20)
[2016-10-29] MEDS ORDERED: Furosemide 10 mg/mL 4 mL Inj IVPUSH ONE (09:45)
--- NOTE | 2016-10-29 09:49 | DRSVH ---
PROCEDURE: X-RAY CHEST ONE VIEW, PORTABLE ([id number]) INDICATIONS: SOB TECHNIQUE: One view of the chest was acquired. COMPARISON: [facility], CR, XR CHEST 1VW (PORTABLE), 10/28/2016, 9:31. FINDINGS: Surgical changes and devices: None. Lungs and pleura: No pleural effusions or pneumothorax. There are persistent but decreased confluen t airspace opacities in the bilateral upper lung zones. There is slightly increased left retrocardia c consolidation or atelectasis. Mediastinum: Mediastinal contours appear unchanged. Heart size is normal. Bones and chest wall: No suspicious bony lesions. Overlying soft tissues appear unremarkable. IMPRESSION: 1. Persistent but decreased bilateral confluent airspace opacities in the upper lung zones are nonsp ecific but likely reflect consolidation and pneumonia. However, the differential is broad and correl ation is recommended clinically as well as further evaluation with CT if indicated. 2. Increased left retrocardiac consolidation or atelectasis. Dictated by: Flavio Arellano M.D. on 10/29/2016 at 9:45 Approved by: Flavio Arellano M.D. on 10/29/2016 at 9:47
[2016-10-29] MEDS ORDERED: Furosemide 10 mg/mL 2 mL Inj IVPUSH ONE (09:50)
[2016-10-29] MEDS ORDERED: GABA-500 PO (10:32)
[2016-10-29] MEDS ORDERED: LATA2.5D6 BOTH_EYES (10:36)
[2016-10-29] MEDS ORDERED: ATOR10TA66 PO (10:36)
[2016-10-29] MEDS ORDERED: ASPI-973 PO (10:36)
--- NOTE | 2016-10-29 10:50 | PCM.PNMED ---
Subjective Date of Service Oct 29, 2016 Subjective Ms. Lesly Wilson is an extremely pleasant 76-year-old female with a history of type II diabetes with polyneuropathy, hypothyroidism, hypertension, who presented to her PCP, then [facility], with chief complaint of sudden onset of left-sided chest pain with radiation to her left arm and left side of neck, which followed the rupture of her left tympanic membrane. Initial EKG performed at [place] revealed ST elevation, patient was immediately given metoprolol, morphine, and heparin. Stat cath completed at our facility revealed a likely etiology of her chest pain as stress-induced cardiomyopathy. She was admitted for evaluation and treatment of stress-induced cardiomyopathy in the setting of suspected underlying otic infection. There were no acute events overnight. Today, patient notes that her shortness of breath is better with the high flow oxygen. She notes that she continues to have nasal congestion as well as sputum production. She also mentions that she has been having some leg cramps. SHe notices that she has decreased hearing on her left ear with a ruptured tympanic membrane. Overall, however, she states that she feels better than she did yesterday. She is less confused and more alert, awake, oriented. On review of systems, patient denies headaches, visual changes, chest pain, abdominal pain, nausea, vomiting, and dysuria. Exam Vital Signs Vital Sign - Last Date Time Temp Pulse Resp B/P Pulse Ox O2 Delivery O2 Flow Rate FiO2 10/29/16 04:07 37.2 94 18 101/59 99 Hi-flow 10/29/16 04:07 80 10/29/16 03:55 50 Intake and Output 10/28/16 10/28/16 10/29/16 Cumulative From/Thru 15:00 23:00 07:00 10/27/16 20:18 - 10/29/16 06:07 Intake Total 1105 ml 258 ml 2295 ml Output Total 2325 ml 2675 ml Balance -1220 ml 258 ml -380 ml Intake Oral 850 ml 950 ml IV Total 255 ml 258 ml 1345 ml Output Urine Total 2325 ml 2675 ml # Voids 6 6 # Bowel Movements 1 1 Exam General: Patient is lying comfortably on bed, AAOX3, not in acute distress, cooperative and pleasant. HEENT: head normocephalic and atraumatic, PERRLA, EOMI, no scleral icterus, noninjected conjunctiva, evidence of nasal congestion, left ear with crusted blood on the external ear canal, evidence of ruptured tympanic membrane Neck: neck supple, non-tender, no lymphadenopathy, trachea midline, no JVD CV: regular rate and rhythm, s1 and s2 heard, no murmur, radial pulses 2+ and equal bilaterally, no rubs murmurs or gallops, no edema Lungs: Patient is on high flow oxygen, Diffuse crackles bilaterally but worse on the right Abdomen: normoactive bowel sounds on 4Q, soft, non-distended, non-tender to palpation, no organomegally, Skin: warm and dry Musculoskeletal: 5/5 UE and LE strength bilaterally, full ROM bilaterally Neuro: Grossly neurologically intact, cranial nerves II through XII intact, Psych: Normal mood and affect IVs and Medications Medications Reviewed: Medications were reviewed in detail Lab and Diagnostics Laboratory Tests Test 10/28/16 14:31 10/28/16 14:55 10/28/16 16:41 10/28/16 19:12 Total Creatine Kinase 175U/L (21-215) Creatine Kinase MB 18.5ng/mL (0.0-5.3) Creatine Kinase MB % 10.6% (0.0-5.0) Troponin T 0.538ug/L (0.0-0.011) Procalcitonin 0.13ng/mL (0.00-0.08) Lactic Acid Level 2.9mmol/L (0.4-2.0) Hold [place] Top Tube Received (Received) Hold Urine Received (Received) Activated Partial Thromboplast Time 46.2sec (22.8-33.0) Test 10/29/16 02:00 10/29/16 05:00 10/29/16 07:13 10/29/16 08:30 Activated Partial Thromboplast Time 58.5sec (22.8-33.0) 60.4sec (22.8-33.0) White Blood Count 16.1th/mm3 (3.8-10.1) Red Blood Count 4.12mil/mm3 (3.90-5.20) Hemoglobin 12.2g/dL (12.0-15.6) Hematocrit 35.3% (35.0-46.0) Mean Corpuscular Volume 85.7fL (81-100) Mean Corpuscular Hemoglobin 29.6pg (27.0-35.0) Mean Corpuscular Hemoglobin Concent 34.6% (32.0-37.0) Red Cell Distribution Width 12.7% (12.3-15.4) Platelet Count 237bil/L (150-400) Neutrophils (%) (Auto) 79.0% (40-74) Lymphocytes (%) (Auto) 11.8% (14-46) Monocytes (%) (Auto) 8.6% (4-12) Eosinophils (%) (Auto) 0.1% (0-5) Basophils (%) (Auto) 0.1% (0-3) Sodium Level 132mEq/L (134-144) 132mEq/L (134-144) Potassium Level 3.6mEq/L (3.5-5.2) 3.7mEq/L (3.5-5.2) Chloride Level 95mEq/L (97-108) 96mEq/L (97-108) Carbon Dioxide Level 23mmol/L (18-29) 23mmol/L (18-29) Blood Urea Nitrogen 15mg/dL (8-27) 14mg/dL (8-27) Creatinine 0.55mg/dL (0.57-1.00) 0.44mg/dL (0.57-1.00) Estimat Glomerular Filtration Rate 154mL/min (>59) 200mL/min (>59) Glucose Level 209mg/dL (60-99) 194mg/dL (60-99) Lactic Acid Level 1.6mmol/L (0.4-2.0) Calcium Level 8.8mg/dL (8.5-10.1) 8.4mg/dL (8.5-10.1) Phosphorus Level 2.2mg/dL (2.5-4.9) Magnesium Level 1.8mg/dL (1.6-2.6) Total Bilirubin 0.3mg/dL (0.0-1.2) Aspartate Amino Transf (AST/SGOT) 34U/L (0-50) Alanine Aminotransferase (ALT/SGPT) 19U/L (0-32) Alkaline Phosphatase 64U/L (25-165) Total Protein 6.0g/dL (6.4-8.4) Albumin 3.2g/dL (3.4-5.0) Procalcitonin 0.31ng/mL (0.00-0.08) Test 10/29/16 13:04 Activated Partial Thromboplast Time 52.5sec (22.8-33.0) Microbiology 10/28/16 Adenovirus DNA (PCR) - Final, Complete Not Detected 10/28/16 Coronavirus 229E PCR - Final, Complete Not Detected 10/28/16 Coronavirus HKU1 PCR - Final, Complete Not Detected 10/28/16 Coronavirus NL63 PCR - Final, Complete Not Detected 10/28/16 Coronavirus OC43 PCR - Final, Complete Not Detected 10/28/16 Influenza Type A (PCR) - Final, Complete Not Detected 10/28/16 Influenza Type B (PCR) - Final, Complete Not Detected 10/28/16 Human Metapneumovirus (PCR) (ALLISON) - Final, Complete Not Detected 10/28/16 Rhinovirus (PCR)(ALLISON) - Final, Complete Not Detected 10/28/16 Parainfluenza Virus Type 1 (PCR) - Final, Complete Not Detected 10/28/16 Parainfluenza Virus Type 2 (PCR) - Final, Complete Not Detected 10/28/16 Parainfluenza Virus Type 3 (PCR) - Final, Complete Not Detected 10/28/16 Parainfluenza Virus Type 4 (NAAT) - Final, Complete Not Detected 10/28/16 Respiratory Syncytial Virus (PCR)MD - Final, Complete Not Detected 10/28/16 Chlamydia pneumoniae (PCR) - Final, Complete Not Detected 10/28/16 Mycoplasma pneumoniae DNA Detection - Final, Complete 10/28/16 Urine Culture - Final, Complete Mixed Urogenital Thelma Result Diagram: 10/29/16 0500 10/29/16 0500 Microbiology Microbiology ADENOVIRUS RESPIRATORY PCR Final 10/28/16-1709 Not Detected CORONOVIRUS 229E Final 10/28/16-1709 Not Detected CORONOVIRUS HKU1 Final 10/28/16-1709 Not Detected CORONOVIRUS NL63 Final 10/28/16-1709 Not Detected CORONOVIRUS OC43 Final 10/28/16-1709 Not Detected INFLUENZA A PCR Final 10/28/16-1709 Not Detected INFLUENZA B PCR Final 10/28/16-1709 Not Detected METAPNEUMOVIRUS PCR Final 10/28/16-1709 Not Detected RHINOVIRUS OR ENTEROVIRUS PCR Final 10/28/16-1709 Not Detected PARAINFLUENZA 1 PCR Final 10/28/16-1709 Not Detected PARAINFLUENZA 2 PCR Final 10/28/16-1709 Not Detected PARAINFLUENZA 3 PCR Final 10/28/16-1709 Not Detected PARAINFLUENZA 4 PCR Final 10/28/16-1709 Not Detected CONTINUED ON NEXT PAGE RUN DATE: 10/28/16 [facility] LIVE PAGE 2 RUN TIME: 1710 Specimen Inquiry PHYSICIAN Patient: LESLY WILSON I [id number] (Continued) Specimen: [id number] Collected: 10/28/16 Received: 10/28/16-1424 (Continued) Procedure Result Verified Site RESP SYNCYTIAL VIRUS PCR Final 10/28/16-1709 Not Detected Microbiology (Continued) CHLAMDOPHILIA PNEUMONIAE PCR Final 10/28/16 Not Detected MYCOPLASMA PNEUMONIAE PCR Final 10/28/16 MYCO PNEUMONIAE PCR Not Detected -------- X-Rays, CTs and MRIs Chest Xray 10/28/16 IMPRESSION: 1. Upper lobe airspace disease is most suggestive of pneumonia. Hypersensitivity pneumonitis or atypical presentation of pulmonary edema may also have this appearance. 2. Moderate pulmonary vascular congestion. Chari B-lines are suggestive of pulmonary edema. Please correlate clinically. Dictated by: Rolf Disla M.D. on 10/28/2016 at 8:48 Approved by: Rolf Disla M.D. on 10/28/2016 at 8:53 Repeat CXR 10/29/16 IMPRESSION: 1. Persistent but decreased bilateral confluent airspace opacities in the upper lung zones are nonspecific but likely reflect consolidation and pneumonia. However, the differential is broad and correlation is recommended clinically as well as further evaluation with CT if indicated. 2. Increased left retrocardiac consolidation or atelectasis. Dictated by: Flavio Arellano M.D. on 10/29/2016 at 9:45 Approved by: Flavio Arellano M.D. on 10/29/2016 at 9:47 Cardiac Echo Impressions ECHO on 10/28/16 Interpretation Summary 1) Normal left ventricular thickness and size with severely reduced systolic function (EF 25-30%). 2) Severe global hypokinesis of the apical 2/3 of the LV. 3) No significant valvular abnormalities. 4) Compared to the Echo done 07/23/2016, LV function has decreased from normal to severely reduced on today's study. Reading Physician:01:13 PM Additional Diagnostics Cardiac Cath on 10/27/16 ANGIOGRAPHIC FINDINGS: 1. Right coronary artery is dominant, free of any significant disease. Mild luminal irregularities are noted. 2. LAD transapical vessels. Mild luminal irregularities of 10% to 20% in the mid segment past the second major diagonal. No critical stenosis is noted. 3. Circumflex is a nondominant, small vessel free of any significant disease. 4. Left heart catheterization revealed an LVEDP that ranged from 27-30. Hand injection showed hypercontractile basal constrictors with the distal half of the LV ring akinetic to dyskinetic suggestive of stress cardiomyopathy. In summary, no significant fixed epicardial coronary artery disease. Delmar Skelton MD 10/27/16 4847 Assessment & Plan Ms. Lesly Wilson is an extremely pleasant 76-year-old female with a history of type II diabetes with polyneuropathy, hypothyroidism, hypertension, who presented to her PCP, [facility], with chief complaint of sudden onset of left-sided chest pain with radiation to her left arm and left side of neck, which followed the rupture of her left tympanic membrane. Initial EKG performed at [place] revealed ST elevation, patient was immediately given metoprolol, morphine, and heparin. Stat cath completed at our facility revealed a likely etiology of her chest pain as stress-induced cardiomyopathy. She was admitted for evaluation and treatment of stress-induced cardiomyopathy in the setting of suspected underlying otic infection. The goal for today is to correct electrolyte abnormalities, continue diuresing, continue antibiotics and try to wean off of high flow oxygen as tolerated. Non-ischemic cardiomyopathy likely Stress-induced cardiomyopathy, acute, present on admission, under evaluation - CC: Left-sided chest pain with radiation to left upper extremity and neck; stat EKG was indicative of ST elevation in leads V2-V5 - Stat cath: 10/27/2016 revealed findings indicative of stress-induced cardiomyopathy - Cardiology recommendations: Continue losartan, add beta arvind, echo today, with repeat echo in approximately 3-5 days - Per Cardiology, - Give furosemide 40 mg IV 1 now and re-dose PRN q3-4 hours. Goal to be net negative 1L in 24 hours -Repeat chest x-ray shows decreasing volume overload and this is consistent with her much improved respiratory distress with diuresis. - Give furosemide 40 mg IV 1 now. Goal to be net negative 1L in 24 hours - Continue spironolactone 12.5mg daily - Continue losartan 50mg daily (hs) - Continue carvedilol 3.125mg bid -Continue heparin gtt for now given high risk for LV thrombus formation.Consider limited Echo prior to discharge to assess need warfarin in case apical akinesis is still present. - Possible etiologies: underlying infection, endocrine aberrancy; eval thyroid and treat infxn/otitis Acute systolic heart failure, present on admission, under evaluation -Likely seconday to nonischemic cardiomyopathy as coronary angiography did not show any obstructive coronary artery disease. - Echo revealed Normal left ventricular thickness and size with severely reduced systolic function (EF 25-30%) compared to ECHO done in 06/2016 - Give furosemide 40 mg IV 1 now and re-dose PRN q3-4 hours. Goal to be net negative 1L in 24 hours -Start spironolactone 12.5mg daily Possible Upper Lobe Pneumonia, ongoing -As evidenced by Chest X-Ray -Procalcitonin increased from 0.07 to 0.13, still less likely to be bacterial, CBC 12.7 -Today, pro-calcitonin increased to 0.31, WBC 16.1 -Repeat procalcitonin in the am -respiratory PCR analysis has been negative thus far -Patient was given augmentin and add azithromycin -Switch antibiotics to 2 g ceftriaxone and azithromycin Electrolyte abnormalities, present on admission, under evaluation -Correct phosphate, magnesium and potassium -Recheck labs in am Left tympanic membrane rupture, acute, present on admission, under evaluation - Patient had evidence of blood within left ear canal - Patient reports URI/viral infection as etiology, as discussed with her primary care - We will obtain respiratory swab to further delineate viral versus bacterial etiology for her vague/mild URI sx - Also initiation of Augmentin x14d, as pt is diabetic, risk for pseudomonas otitis - No otic ofloxacin secondary to pt allergy to fluoroquinolones - Strong consideration of ENT referral for prompt/stat FU when discharged - Pt reports established with Dr. Cruz in [place]- pt would like to be seen by his practice if possible Acute hypoxemia, present on admission,ongoing -This morning, patient complained of SOB -Likely secondary to acute systolic heart failure and possible upper lobe pneumonia -Morning ABGs revealed evidence of hypoxemia, which resolved with High flow Oxygen -Continue to monitor oxygen saturation Minimal CAD, present on admission, ongoing - Continue aspirin 81mg daily - Continue atorvastatin 10mg qhs History of diabetes with peripheral nephropathy, non-insulin using, chronic, presumed stable - Home medications include metformin - Holding metformin during hospitalization - Institution of low-dose correctional scale - Continue Gabapentin nightly Hypertension, chronic, well-controlled - We will resume home medications, including losartan, and initiation of metoprolol secondary to stress-induced cardiomyopathy treatment - Anti-hypertensive medications as above Insomnia, chronic, presumed stable - Patient reports new medication of Ambien to help with sleep aid - Due to patient's naivety to medication, we will not initiate this medication during this hospitalization - Attempt gabapentin, and other modalities for sleep Hypothyroidism, chronic, stable -Most recent TSH 1.050 -Continue levothyroxine PRN fever, bowel, nausea, pain DVT: Hep gtt per cardiology; transition to subcutaneous when appropriate Diet: Heart/carb GI: H2B IVF: NS 100 Code: FULL CODE Patient status: Patient is admitted under inpatient status with expected length of stay greater than 2 midnights due to severity of presenting symptoms, risk of adverse event, and complexity of treatment plan. GI Prophylaxis: H2 arvind VTE Prophylaxis: Other (hep gtt) VTE Mechanical Devices: Intermittant Pneumatic CD Resuscitation Status: CPR: Attempt Resuscitation Attending Statement The patient was seen and examined together with Dr. Sr on 10/29/2016 and I agree with the history, exam and plan as outlined in the note above. . Kenzie Sr DO Oct 29, 2016 06:40 Dk Shoemaker MD Oct 29, 2016 18:44
[2016-10-29] MEDS ORDERED: LOSA25TA21 PO (11:07)
[2016-10-29] MEDS: cefTRIAXone Inj 2,000 MG in Dextrose 5% Minibag Plus 50 ML IV SCH (11:16)
--- NOTE | 2016-10-29 11:39 | PCM.PNCARD ---
Subjective Date of service Oct 29, 2016 Chief Complaint NSTEMI, heart failure History of Present Illness 76 yo W h/o DM-2 and HTN admitted with NSTEMI and newly diagnosed non-ischemic cardiomyopathy. Subjective: Compared to yesterday, patient feels much better and her breathing is also significantly improved. Exam Vital Signs Vital Sign - Last Date Time Temp Pulse Resp B/P Pulse Ox O2 Delivery O2 Flow Rate FiO2 10/29/16 08:08 37.3 96 20 120/59 98 high flow 50L 80 10/29/16 03:55 50 Intake and Output 10/28/16 10/28/16 10/29/16 Cumulative From/Thru 15:00 23:00 07:00 10/27/16 20:18 - 10/29/16 06:37 Intake Total 1105 ml 1244 ml 3281 ml Output Total 2325 ml 1870 ml 4545 ml Balance -1220 ml -626 ml -1264 ml Intake Oral 850 ml 986 ml 1936 ml IV Total 255 ml 258 ml 1345 ml Output Urine Total 2325 ml 1870 ml 4545 ml # Voids 6 6 # Bowel Movements 1 1 General appearance: in mild respiratory distress, elderly, pleasant, cooperative HEET: Normocephalic atraumatic, no scleral icterus, tongue midline, mucous membranes moist Neck: supple Cardiovascular: RRR, normal S1 and normal S2, no murmurs/ rubs/gallops, PMI nondisplaced, no JVD, no peripheral edema Respiratory: Fair aeration, coarse b/l Abdomen: Soft, nontender, nondistended, + bowel sounds Neuro: Alert, no facial droop, tongue midline, no gross motor deficits Lab and Diagnostics Result Diagram: 10/29/16 0500 10/29/16 0830 Assessment & Plan Assessment 76 yo W h/o DM-2 and HTN admitted with NSTEMI and newly diagnosed non-ischemic cardiomyopathy and NSTEMI: # Acute systolic heart failure: Etiology is nonischemic cardiomyopathy as coronary angiography did not show any obstructive coronary artery disease. Wall motion abnormalities could be suggestive of takotsubo cardiomyopathy but there is no clear stress event prior to this episode. LVEF 25-30%. Patient's repeat chest x-ray shows decreasing volume overload and this is consistent with her much improved respiratory distress with diuresis. She is NYHA class IV, ACC stage III. Plan: - Give furosemide 40 mg IV 1 now. Goal to be net negative 1L in 24 hours - Continue spironolactone 12.5mg daily - Continue losartan 50mg daily (hs) - Continue carvedilol 3.125mg bid - Ok to be on heparin gtt for now given high risk for LV thrombus formation. Consider limited Echo prior to discharge to assess need warfarin in case apical akinesis is still present. # Minimal CAD: - Continue aspirin 81mg daily - Continue atorvastatin 10mg qhs # HTN: well controlled. Meds as above. # Leukocytosis: concerning for infection. She did present with left ear pain and it could be the cause of infection. Defer evaluation and management to primary team. # Diabetes: defer management to primary team. Problems: Pain Evaluation: Adequate Pain Control GI Prophylaxis: H2 arvind VTE Prophylaxis: Other (hep gtt) VTE Mechanical Devices: Intermittant Pneumatic CD Resuscitation Status: CPR: Attempt Resuscitation Vishal Nolen MD Oct 29, 2016 11:39
[2016-10-29] MEDS ORDERED: Potassium Phos (mEq) Inj 20 MEQ in Dextrose 5% 250 ML IV ONE (11:55)
[2016-10-29] MEDS ORDERED: Magnesium Sulf 2 Gm/50mL Water 2 GM in IV Premix 1 EACH IV ONE (11:55)
[2016-10-29 20:31] LABS: Magnesium 2.3 mg/dL (1.6-2.6); Phosphorus 2.2 mg/dL (2.5-4.9)
[2016-10-29] MEDS: Heparin Protocol Boluses IVPUSH PRN (21:13)
[2016-10-30] VITALS (10 sets, daily range): BP systolic 87–116; BP diastolic 46–68; PULSE 82–107; RESP 16–21; O2SAT 93–98
[2016-10-30] MEDS: Heparin 25K Unit/500mL 0.45 NS 25,000 UNIT in IV Premix 1 EACH IV SCH (02:43)
[2016-10-30 03:08] LABS: BASOPHILS % (AUTO) 0.1 % (0-3); EOSINOPHILS % (AUTO) 0.4 % (0-5); MONOCYTES % (AUTO) 9.6 % (4-12); Mean Corpuscular Hemoglobin 29.8 pg (27.0-35.0); Mean Corpuscular Volume 87.4 fL (81-100); NEUTROPHILS % (AUTO) 72.3 % (40-74); Platelet Count 241 bil/L (150-400)
[2016-10-30 03:41] LABS: Magnesium 2.2 mg/dL (1.6-2.6)
[2016-10-30] MEDS: Insulin LISPRO 300 Unit/3 mL Inj SUBQ SCH ×4 (09:29→21:15)
[2016-10-30] MEDS: cefTRIAXone Inj 2,000 MG in Dextrose 5% Minibag Plus 50 ML IV SCH (09:33)
--- NOTE | 2016-10-30 11:38 | PROG NOTE ---
[address] [address] PROGRESS NOTE PATIENT: MARLINE MOMIN I : 1940 MR#: [id number] ADMIT: 10/27/2016 JOB ID: [id number] DATE: 10/30/2016 SUBJECTIVE: The patient still has some shortness of breath but overall better than she came. No active chest pain. When she blows her nose, she sees fresh blood. She is coughing dark sputum. At present, no active bleeding. In summary, this 76-year-old pleasant female who has a history of type 2 diabetes mellitus, hypertension, presented with chest pain and anterolateral stuttering ST elevation. She was taken to the laboratory tester by Dr. Skelton and had left heart catheterization on October 27, 2016 which did not reveal any significant coronary artery disease. However, left ventriculography was suggestive of stress-induced cardiomyopathy with LVEDP of 27-30. The patient underwent echocardiogram on October 28, 2016, which revealed LV ejection fraction 25%-30% with severe global hypokinesis of apical two thirds of LV without any significant valvular pathology and normal right ventricular function. The patient is also being treated for possible upper lobe pneumonia. OBJECTIVE: Blood pressure 113/56, heart rate 91, respiratory rate 18, oxygen saturation 94%. HEENT: No significant JVD. Chest: Bilateral basal crepitations. CVS: S1, S2 normal. No S3, S4. No significant murmur. Abdomen: No obvious pulsatile mass. Extremities: No significant pedal edema. No calf tenderness. MANAGER PUBLISHING: Alert, oriented to time, place and person. Telemetry: Sinus rhythm. No sustained ventricular tachycardia. LABORATORIES: WBC 14.3, hemoglobin 11.1, platelets 241, polymorphs 72.3. Sodium 135, potassium 3.7, BUN 18, creatinine 0.59, lactic acid 1.1, magnesium 2.2. Normal AST, ALT. TSH 1.05. ASSESSMENT AND PLAN: This 76-year-old pleasant female with history of diabetes mellitus and hypertension, presented with acute coronary syndrome type of picture. On left heart catheterization no significant coronary artery disease. Left ventriculography as well as echocardiogram revealed profound LV dysfunction with possibility of stress-induced cardiomyopathy and acute systolic congestive heart failure. No significant valvular pathology. The patient is being treated for possible pneumonia as well. Yesterday she was negative balance of -48 mL, before that 638 mL, and today so far 390 mL. At this point of time I will increase carvedilol to 3.125 mg twice a day from once a day dose. As she is having intermittent epistaxis, as well as coughing up some dark phlegm, I will stop IV heparin. If there is no bleed, then consider heparin for pulmonary embolism prophylaxis purpose. Consider pneumatic compression. Will repeat a limited echocardiogram to assess LV function and make sure there is no intracardiac clot. Discussed the plan with the patient. She agreed and concurred. TIME: Total time spent today about 35 minutes.
--- NOTE | 2016-10-30 13:51 | PCM.PNMED ---
Subjective Date of Service Oct 30, 2016 Subjective Ms. Lesly Wilson is an extremely pleasant 76-year-old female with a history of type II diabetes with polyneuropathy, hypothyroidism, hypertension, who presented to her PCP, then [facility], with chief complaint of sudden onset of left-sided chest pain with radiation to her left arm and left side of neck, which followed the rupture of her left tympanic membrane. Initial EKG performed at [facility] revealed ST elevation, patient was immediately given metoprolol, morphine, and heparin. Stat cath completed at our facility revealed a likely etiology of her chest pain as stress-induced cardiomyopathy. She was admitted for evaluation and treatment of stress-induced cardiomyopathy in the setting of suspected underlying otic infection and pneumonia. Today, patient states that she has noticed some improvement in her breathing. However, she notes that she had some sputum with blood last night, which was collected for culture. She continues to have nasal congestion and decreased hearing of her left ear. She denies visual changes, chest pain, nausea, vomiting , abdominal pain and dysuria. There were no acute events overnight. Exam Vital Signs Vital Sign - Last Date Time Temp Pulse Resp B/P Pulse Ox O2 Delivery O2 Flow Rate FiO2 10/30/16 05:43 91 10/30/16 04:33 37.8 21 94/50 93 OxyMask 9.00 10/29/16 11:48 60 Intake and Output 10/29/16 10/29/16 10/30/16 Cumulative From/Thru 15:00 23:00 07:00 10/27/16 20:18 - 10/30/16 05:54 Intake Total 578 ml 543 ml 4402 ml Output Total 1100 ml 5645 ml Balance 578 ml -557 ml -1243 ml Intake Oral 250 ml 2186 ml IV Total 578 ml 293 ml 2216 ml Output Urine Total 1100 ml 5645 ml # Voids 6 # Bowel Movements 1 Exam General: Patient is lying comfortably on bed, AAOX3, not in acute distress, cooperative and pleasant. HEENT: head normocephalic and atraumatic, PERRLA, EOMI, no scleral icterus, noninjected conjunctiva, evidence of nasal congestion, left ear with crusted blood on the external ear canal, evidence of ruptured tympanic membrane Neck: neck supple, non-tender, no lymphadenopathy, trachea midline, no JVD CV: regular rate and rhythm, s1 and s2 heard, no murmur, radial pulses 2+ and equal bilaterally, no rubs murmurs or gallops, no edema Lungs: crackles on lung bases bilaterally, upper lobe aeration sounds improved, on 9L supplemental oxygen Abdomen: normoactive bowel sounds on 4Q, soft, non-distended, non-tender to palpation, no organomegally, Skin: warm and dry Musculoskeletal: 5/5 UE and LE strength bilaterally, full ROM bilaterally Neuro: Grossly neurologically intact, cranial nerves II through XII intact, Psych: Normal mood and affect IVs and Medications Medications Reviewed: Medications were reviewed in detail Lab and Diagnostics Laboratory Tests Test 10/29/16 20:02 10/30/16 02:50 Activated Partial Thromboplast Time 39.4sec (22.8-33.0) 61.5sec (22.8-33.0) Potassium Level 3.6mEq/L (3.5-5.2) 3.7mEq/L (3.5-5.2) Phosphorus Level 2.2mg/dL (2.5-4.9) 2.0mg/dL (2.5-4.9) Magnesium Level 2.3mg/dL (1.6-2.6) 2.2mg/dL (1.6-2.6) White Blood Count 14.3th/mm3 (3.8-10.1) Red Blood Count 3.73mil/mm3 (3.90-5.20) Hemoglobin 11.1g/dL (12.0-15.6) Hematocrit 32.6% (35.0-46.0) Mean Corpuscular Volume 87.4fL (81-100) Mean Corpuscular Hemoglobin 29.8pg (27.0-35.0) Mean Corpuscular Hemoglobin Concent 34.0% (32.0-37.0) Red Cell Distribution Width 13.0% (12.3-15.4) Platelet Count 241bil/L (150-400) Neutrophils (%) (Auto) 72.3% (40-74) Lymphocytes (%) (Auto) 16.8% (14-46) Monocytes (%) (Auto) 9.6% (4-12) Eosinophils (%) (Auto) 0.4% (0-5) Basophils (%) (Auto) 0.1% (0-3) Sodium Level 135mEq/L (134-144) Chloride Level 97mEq/L (97-108) Carbon Dioxide Level 26mmol/L (18-29) Blood Urea Nitrogen 18mg/dL (8-27) Creatinine 0.59mg/dL (0.57-1.00) Estimat Glomerular Filtration Rate 142mL/min (>59) Glucose Level 180mg/dL (60-99) Lactic Acid Level 1.1mmol/L (0.4-2.0) Calcium Level 8.5mg/dL (8.5-10.1) Total Bilirubin 0.4mg/dL (0.0-1.2) Aspartate Amino Transf (AST/SGOT) 17U/L (0-50) Alanine Aminotransferase (ALT/SGPT) 16U/L (0-32) Alkaline Phosphatase 69U/L (25-165) Total Protein 6.2g/dL (6.4-8.4) Albumin 3.1g/dL (3.4-5.0) Procalcitonin 0.26ng/mL (0.00-0.08) Microbiology 10/28/16 Adenovirus DNA (PCR) - Final, Complete Not Detected 10/28/16 Coronavirus 229E PCR - Final, Complete Not Detected 10/28/16 Coronavirus HKU1 PCR - Final, Complete Not Detected 10/28/16 Coronavirus NL63 PCR - Final, Complete Not Detected 10/28/16 Coronavirus OC43 PCR - Final, Complete Not Detected 10/28/16 Influenza Type A (PCR) - Final, Complete Not Detected 10/28/16 Influenza Type B (PCR) - Final, Complete Not Detected 10/28/16 Human Metapneumovirus (PCR) (ALLISON) - Final, Complete Not Detected 10/28/16 Rhinovirus (PCR)(ALLISON) - Final, Complete Not Detected 10/28/16 Parainfluenza Virus Type 1 (PCR) - Final, Complete Not Detected 10/28/16 Parainfluenza Virus Type 2 (PCR) - Final, Complete Not Detected 10/28/16 Parainfluenza Virus Type 3 (PCR) - Final, Complete Not Detected 10/28/16 Parainfluenza Virus Type 4 (NAAT) - Final, Complete Not Detected 10/28/16 Respiratory Syncytial Virus (PCR)SC - Final, Complete Not Detected 10/28/16 Chlamydia pneumoniae (PCR) - Final, Complete Not Detected 10/28/16 Mycoplasma pneumoniae DNA Detection - Final, Complete 10/28/16 Urine Culture - Final, Complete Mixed Urogenital Denae Result Diagram: 10/30/1624910/30/16249 Microbiology Microbiology ALLISON CULT SPUTUM GS Final 10/29/16-528 SPT GRAM STAIN MODERATE POLYS RARE EPITHELIAL CELLS FEW MIXED NORMAL DENAE MANY GRAM NEG RODS This Spec is of good Quality and acceptable for Cult RESPIRATORY CULTURE Preliminary 10/30/16 Organism 1 HAEMOPHILUS INFLUENZAE COLONY COUNT/QUANTITY HEAVY GROWTH SENSITIVITY COMMENTS Susceptibilty testing to follow. BETA LACTAM (CEFINASE) RESISTANT Organism 2 WITH NORMAL DENAE COLONY COUNT/QUANTITY SCANT GROWTH BETA LACTAM (CEFINASE) RESISTANT Microbiology ADENOVIRUS RESPIRATORY PCR Final 10/28/16-1709 Not Detected CORONOVIRUS 229E Final 10/28/16-1709 Not Detected CORONOVIRUS HKU1 Final 10/28/16 Not Detected CORONOVIRUS NL63 Final 10/28/16-1709 Not Detected CORONOVIRUS OC43 Final 10/28/16-1709 Not Detected INFLUENZA A PCR Final 10/28/16 Not Detected INFLUENZA B PCR Final 10/28/16 Not Detected METAPNEUMOVIRUS PCR Final 10/28/16-1709 Not Detected RHINOVIRUS OR ENTEROVIRUS PCR Final 10/28/16-1709 Not Detected PARAINFLUENZA 1 PCR Final 10/28/16 Not Detected PARAINFLUENZA 2 PCR Final 10/28/16 Not Detected PARAINFLUENZA 3 PCR Final 10/28/16 Not Detected PARAINFLUENZA 4 PCR Final 10/28/16 Not Detected CONTINUED ON NEXT PAGE RUN DATE: 10/28/16 [facility] LIVE PAGE 2 RUN TIME: 1710 Specimen Inquiry PHYSICIAN Patient: LESLY WILSON I [id number] (Continued) Specimen: [id number] Collected: 10/28/16 Received: 10/28/16 (Continued) Procedure Result Verified Site RESP SYNCYTIAL VIRUS PCR Final 10/28/16-1709 Not Detected Microbiology (Continued) CHLAMDOPHILIA PNEUMONIAE PCR Final 10/28/16-1709 Not Detected MYCOPLASMA PNEUMONIAE PCR Final 10/28/16 MYCO PNEUMONIAE PCR Not Detected -------- X-Rays, CTs and MRIs Chest Xray 10/28/16 IMPRESSION: 1. Upper lobe airspace disease is most suggestive of pneumonia. Hypersensitivity pneumonitis or atypical presentation of pulmonary edema may also have this appearance. 2. Moderate pulmonary vascular congestion. Chari B-lines are suggestive of pulmonary edema. Please correlate clinically. Dictated by: Rolf Disla M.D. on 10/28/2016 at 8:48 Approved by: Rolf Disla M.D. on 10/28/2016 at 8:53 Repeat CXR 10/29/16 IMPRESSION: 1. Persistent but decreased bilateral confluent airspace opacities in the upper lung zones are nonspecific but likely reflect consolidation and pneumonia. However, the differential is broad and correlation is recommended clinically as well as further evaluation with CT if indicated. 2. Increased left retrocardiac consolidation or atelectasis. Dictated by: Flavio Arellano M.D. on 10/29/2016 at 9:45 Approved by: Flavio Arellano M.D. on 10/29/2016 at 9:47 Cardiac Echo Impressions ECHO on 10/28/16 Interpretation Summary 1) Normal left ventricular thickness and size with severely reduced systolic function (EF 25-30%). 2) Severe global hypokinesis of the apical 2/3 of the LV. 3) No significant valvular abnormalities. 4) Compared to the Echo done 07/23/2016, LV function has decreased from normal to severely reduced on today's study. Reading Physician:01:13 PM Additional Diagnostics Cardiac Cath on 10/27/16 ANGIOGRAPHIC FINDINGS: 1. Right coronary artery is dominant, free of any significant disease. Mild luminal irregularities are noted. 2. LAD transapical vessels. Mild luminal irregularities of 10% to 20% in the mid segment past the second major diagonal. No critical stenosis is noted. 3. Circumflex is a nondominant, small vessel free of any significant disease. 4. Left heart catheterization revealed an LVEDP that ranged from 27-30. Hand injection showed hypercontractile basal constrictors with the distal half of the LV ring akinetic to dyskinetic suggestive of stress cardiomyopathy. In summary, no significant fixed epicardial coronary artery disease. Delmar Skelton MD 10/27/16 8337 Assessment & Plan Ms. Lesly Wilson is an extremely pleasant 76-year-old female with a history of type II diabetes with polyneuropathy, hypothyroidism, hypertension, who presented to her PCP, then [facility], with chief complaint of sudden onset of left-sided chest pain with radiation to her left arm and left side of neck, which followed the rupture of her left tympanic membrane. Initial EKG performed at [facility] revealed ST elevation, patient was immediately given metoprolol, morphine, and heparin. Stat cath completed at our facility revealed a likely etiology of her chest pain as stress-induced cardiomyopathy. She was admitted for evaluation and treatment of stress-induced cardiomyopathy in the setting of suspected underlying otic infection and pneumonia. The goal for today is to continue diuresing, continue antibiotics and try to decrease supplemental oxygen as tolerated. Non-ischemic cardiomyopathy likely Stress-induced cardiomyopathy, acute, present on admission, under evaluation - CC: Left-sided chest pain with radiation to left upper extremity and neck; stat EKG was indicative of ST elevation in leads V2-V5 - Stat cath: 10/27/2016 revealed findings indicative of stress-induced cardiomyopathy - Cardiology recommendations: Continue losartan, add beta arvind, echo today, with repeat echo in approximately 3-5 days - Per Cardiology, 10/29/16- Give furosemide 40 mg IV 1 now and re-dose PRN q3-4 hours. Goal to be net negative 1L in 24 hours -Repeat chest x-ray shows decreasing volume overload and this is consistent with her much improved respiratory distress with diuresis. - Patient receiving furosemide 40 mg po daily - Continue spironolactone 12.5mg daily - Continue losartan 50mg daily (hs) - Continue carvedilol 3.125mg bid -Continue heparin gtt for now given high risk for LV thrombus formation.Consider limited Echo prior to discharge to assess need warfarin in case apical akinesis is still present - intermittent epistaxis, as well as coughing up some dark phlegm, per cardiology, will stop IV heparin -repeat a limited echocardiogram to assess LV function and make sure there is no intracardiac clot - Possible etiologies: underlying infection, endocrine aberrancy; eval thyroid and treat infxn/otitis Acute systolic heart failure, present on admission, under evaluation -Likely seconday to nonischemic cardiomyopathy as coronary angiography did not show any obstructive coronary artery disease. - Echo revealed Normal left ventricular thickness and size with severely reduced systolic function (EF 25-30%) compared to ECHO done in 06/2016 - Give furosemide 40 mg IV 1 now and re-dose PRN q3-4 hours. Goal to be net negative 1L in 24 hours -Start spironolactone 12.5mg daily Acute Hypoxemic Respiratory Failure, present on admission, resolving -marlene secondary to pneumonia and stress cardiomyopathy with resultant pulmonary edema -Patient has been on high flow oxygen -Now on Oxymask 9L and reports breathing has improved Possible Upper Lobe Pneumonia, ongoing -As evidenced by Chest X-Ray -Procalcitonin increased from 0.07 to 0.13, WBC 12.7 -Today, pro-calcitonin decreased to 0.26, WBC went down to 14.3 -Repeat procalcitonin in the am -Lactic acid normalized to 1.1 -respiratory PCR analysis has been negative thus far -sputum cultures grew H. Influenza, recreation assistant to beta-lactam. -Patient was given augmentin and add azithromycin -Discontinue antibiotics to 2 g ceftriaxone and azithromycin -Start patient on aztreonam Electrolyte abnormalities, present on admission, under evaluation -Correct phosphate, magnesium and potassium -Recheck labs in am , showed improved potassium and magnesium Left tympanic membrane rupture, acute, present on admission, under evaluation - Patient had evidence of blood within left ear canal - Patient reports URI/viral infection as etiology, as discussed with her primary care - We will obtain respiratory swab to further delineate viral versus bacterial etiology for her vague/mild URI sx - Also initiation of Augmentin x14d, as pt is diabetic, risk for pseudomonas otitis - No otic ofloxacin secondary to pt allergy to fluoroquinolones - Strong consideration of ENT referral for prompt/stat FU when discharged - Pt reports established with Dr. Cruz in [place]- pt would like to be seen by his practice if possible Acute hypoxemia, present on admission,ongoing -This morning, patient complained of SOB -Likely secondary to acute systolic heart failure and possible upper lobe pneumonia -Morning ABGs revealed evidence of hypoxemia, which resolved with High flow Oxygen -Continue to monitor oxygen saturation Minimal CAD, present on admission, ongoing - Continue aspirin 81mg daily - Continue atorvastatin 10mg qhs History of diabetes with peripheral nephropathy, non-insulin using, chronic, presumed stable - Home medications include metformin - Holding metformin during hospitalization - Institution of low-dose correctional scale - Continue Gabapentin nightly Hypertension, chronic, well-controlled - We will resume home medications, including losartan, and initiation of metoprolol secondary to stress-induced cardiomyopathy treatment - Anti-hypertensive medications as above Insomnia, chronic, presumed stable - Patient reports new medication of Ambien to help with sleep aid - Due to patient's naivety to medication, we will not initiate this medication during this hospitalization - Attempt gabapentin, and other modalities for sleep Hypothyroidism, chronic, stable -Most recent TSH 1.050 -Continue levothyroxine PRN fever, bowel, nausea, pain DVT: Hep gtt per cardiology; transition to subcutaneous when appropriate Diet: Heart/carb GI: H2B IVF: NS 100 Code: FULL CODE Patient status: Patient is admitted under inpatient status with expected length of stay greater than 2 midnights due to severity of presenting symptoms, risk of adverse event, and complexity of treatment plan. Pain Evaluation: Adequate Pain Control GI Prophylaxis: H2 arvind VTE Prophylaxis: Other (stopped heparin drip due to bleeding) VTE Mechanical Devices: Intermittant Pneumatic CD Resuscitation Status: CPR: Attempt Resuscitation Attending Statement The patient was seen and examined together with Dr. Sr on 10/30/2016 and I agree with the history, exam and plan as outlined in the note above. . Kenzie Sr DO Oct 30, 2016 06:59 Dk Shoemaker MD Oct 31, 2016 07:28
--- NOTE | 2016-10-30 16:14 | DRSVH ---
[facility] [address] [place] [address] Echocardiogram Report Name: MARLINE MOMIN Alexx e: 10/30/2016 Height: 63 in Hospital Exam Location: [facility] Weight: 144 lb Gender: Other BSA: 1.7 m2 : 1940 Age: 76 yrs BP: 113/56 m mHg Reason For Study: REEVALUATE LV FUNCTION, TAKUTSUBO'S Ordering Physician: Glen Brumfield Performed By: Vincent Hodges Referring Physician: [facility] Interpretation Summary The left ventricle is normal in size. The ejection fraction is estimated to be 40-45%. Compared to the prior exam, left ventricular function is moderately improved. Basal segments are more hypercontractile compared to exam from two days ago. There is also improvement in the apical contractility. Mid and distal segments are still significantly hypokinetic. There is no LV thrombus. Procedure: A two-dimensional transthoracic echocardiogram with color flow and Doppler was performed in limited views only. The study quality was technically good. Comparison is made with the echocardiogram of 10/28/16. The patient was in sinus tachycardia with heart rates between 98-103 bpm during the exam. Left Ventricle: The left ventricle is normal in size. There is normal left ventricular wall thickness. Proximal septal thickening is noted. There is no thrombus. The ejection fraction is estimated to be 40-45%. Compared to the prior exam, left ventricular function is moderately improved. Basal segments are more hypercontractile compared to exam from two days ago. There is also improvement in the apical contractility. Mid and distal segments are still significantly hypokinetic. Reading Physician:SEGUNDO
[2016-10-30] MEDS ORDERED: Ciprofloxacin Inj 400 MG in IV Premix 1 EACH IV SCH (18:45)
[2016-10-30] MEDS: DEXTROSE 5% IV SCH (21:13)
[2016-10-30] MEDS: AZTREONAM IV SCH (21:13)
[2016-10-30] MEDS: 0.9% Sodium Chloride 250 ML IV PRN (21:15)
[2016-10-31] VITALS (12 sets, daily range): BP systolic 92–130; BP diastolic 48–78; PULSE 72–106; RESP 16–24; O2SAT 94–97
[2016-10-31] MEDS: Heparin 5,000 Unit/mL Inj SUBQ SCH ×4 (03:08→17:13)
[2016-10-31 06:00] LABS: BASOPHILS % (AUTO) 0.2 % (0-3); EOSINOPHILS % (AUTO) 1.4 % (0-5); MONOCYTES % (AUTO) 11.7 % (4-12); Mean Corpuscular Hemoglobin 29.1 pg (27.0-35.0); NEUTROPHILS % (AUTO) 64.6 % (40-74); Platelet Count 244 bil/L (150-400)
[2016-10-31] MEDS: DEXTROSE 5% IV SCH ×3 (06:07→21:17)
[2016-10-31] MEDS: AZTREONAM IV SCH ×3 (06:07→21:17)
[2016-10-31] MEDS: Insulin LISPRO 300 Unit/3 mL Inj SUBQ SCH ×4 (09:18→21:28)
--- NOTE | 2016-10-31 11:21 | PROG NOTE ---
[address] [address] PROGRESS NOTE PATIENT: MARLINE MOMIN I : 1940 MR#: [id number] ADMIT: 10/27/2016 JOB ID: [id number] DATE: 10/31/2016 SUBJECTIVE: The patient denies any worsening shortness of breath or chest pain or active bleeding. Her nasal bleed and some blood in the cough which she had it yesterday got improved. OBJECTIVE: Blood pressure 102/53, heart rate 91, respiratory rate 16, oxygen saturation 95% on 9 L. Neck: No apparent JVP. Chest: Decreased air entry at the bases. CVS: S1, S2 normal. No S3, no S4. No significant murmur. Abdomen: No obvious pulsatile mass. Extremities: No significant pedal edema. PHARMACY RETAIL SUPPORT SPECIALIST: Alert. Oriented to time, place, and person. Telemetry is sinus rhythm without any sustained ventricular tachycardia. Repeat echocardiogram yesterday revealed improvement in LV function. Now the LV ejection fraction about 40% to 45%. Apical wall motion abnormality is improving. The patient still has significantly hypokinetic mid and distal LV segments but basal segments are hypercontractile. No LV thrombus. LABORATORIES: Hemoglobin 10.2, platelets 244. Sodium 137, potassium 4.0, BUN 17, creatinine 0.55. ASSESSMENT AND PLAN: Stress-induced cardiomyopathy status post left heart catheterization which did not reveal any significant coronary artery disease with the initial LV ejection fraction 25% to 30% which is getting better, with underlying pneumonia as well. From cardiac perspective we will recommend optimization and maximization of beta arvind. I will cut down losartan from 50 mg to 25 mg daily to optimize beta-arvind. Will increase carvedilol to 6.25 mg twice a day. She is on spironolactone and Lasix as well. From tomorrow cut down Lasix from 40 to 20 mg daily. Close watch on the electrolytes. Discussed the plan with the patient as well as our hospitalist team. At this point of time, Cardiology will sign off. Will recommend followup with Cardiology as an outpatient with Dr. Skelton in two weeks time with electrolytes. TIME: Total time spent today including discussion with the hospitalist team about 35 minutes.
--- NOTE | 2016-10-31 13:48 | PCM.PNMED ---
Subjective Date of Service Oct 31, 2016 Subjective Ms. Lesly Wilson is an extremely pleasant 76-year-old female with a history of type II diabetes with polyneuropathy, hypothyroidism, hypertension, who presented to her PCP, then [facility], with chief complaint of sudden onset of left-sided chest pain with radiation to her left arm and left side of neck, which followed the rupture of her left tympanic membrane. Initial EKG performed at [place] revealed ST elevation, patient was immediately given metoprolol, morphine, and heparin. Stat cath completed at our facility revealed a likely etiology of her chest pain as stress-induced cardiomyopathy. Today, patient states that she has been trying to Patient complains of shortness of breath with activity. Pt's supplemental oxygen has been titrated between 7-9L oxymask throughout the shift to keep pt's SpO2 > 92%. Pt is currently on 8L O2 since pt is sleeping at this time. When pt is sleeping pt's O2 ends up being increased from 7L to 8-9L but then pt' s O2 can be titrated back down to 7L when pt is awake. Pt only c/o SOB with activity at this time. No s/s of bleeding during the shift so pt was given Heparin SQ. Exam Vital Signs Vital Sign - Last Date Time Temp Pulse Resp B/P Pulse Ox O2 Delivery O2 Flow Rate FiO2 10/31/16 05:50 106 10/31/16 03:16 37.7 16 92/78 94 OxyMask 9.00 10/29/16 11:48 60 Intake and Output 10/30/16 10/30/16 10/31/16 Cumulative From/Thru 15:00 23:00 07:00 10/27/16 20:18 - 10/31/16 06:03 Intake Total 167 ml 1272 ml 400 ml 6241 ml Output Total 1700 ml 700 ml 8045 ml Balance 167 ml -428 ml -300 ml -1804 ml Intake Oral 1272 ml 400 ml 3858 ml IV Total 167 ml 2383 ml Output Urine Total 1700 ml 700 ml 8045 ml # Voids 2 8 # Bowel Movements 0 1 Exam General: Patient is lying comfortably on bed, AAOX3, not in acute distress, cooperative and pleasant. HEENT: head normocephalic and atraumatic, PERRLA, EOMI, no scleral icterus, noninjected conjunctiva, evidence of nasal congestion, left ear with crusted blood on the external ear canal, evidence of ruptured tympanic membrane Neck: neck supple, non-tender, no lymphadenopathy, trachea midline, no JVD CV: regular rate and rhythm, s1 and s2 heard, no murmur, radial pulses 2+ and equal bilaterally, no rubs murmurs or gallops, no edema Lungs: crackles on lung bases bilaterally, upper lobe aeration sounds improved, on 9L supplemental oxygen Abdomen: normoactive bowel sounds on 4Q, soft, non-distended, non-tender to palpation, no organomegally, Skin: warm and dry Musculoskeletal: 5/5 UE and LE strength bilaterally, full ROM bilaterally Neuro: Grossly neurologically intact, cranial nerves II through XII intact, Psych: Normal mood and affect IVs and Medications Medications Reviewed: Medications were reviewed in detail Lab and Diagnostics Laboratory Tests Test 10/31/16 05:50 White Blood Count 11.8th/mm3 (3.8-10.1) Red Blood Count 3.51mil/mm3 (3.90-5.20) Hemoglobin 10.2g/dL (12.0-15.6) Hematocrit 30.9% (35.0-46.0) Mean Corpuscular Volume 88.0fL (81-100) Mean Corpuscular Hemoglobin 29.1pg (27.0-35.0) Mean Corpuscular Hemoglobin Concent 33.0% (32.0-37.0) Red Cell Distribution Width 13.1% (12.3-15.4) Platelet Count 244bil/L (150-400) Neutrophils (%) (Auto) 64.6% (40-74) Lymphocytes (%) (Auto) 21.1% (14-46) Monocytes (%) (Auto) 11.7% (4-12) Eosinophils (%) (Auto) 1.4% (0-5) Basophils (%) (Auto) 0.2% (0-3) Sodium Level 137mEq/L (134-144) Potassium Level 4.0mEq/L (3.5-5.2) Chloride Level 99mEq/L (97-108) Carbon Dioxide Level 26mmol/L (18-29) Blood Urea Nitrogen 17mg/dL (8-27) Creatinine 0.55mg/dL (0.57-1.00) Estimat Glomerular Filtration Rate 154mL/min (>59) Glucose Level 189mg/dL (60-99) Lactic Acid Level 1.0mmol/L (0.4-2.0) Calcium Level 8.5mg/dL (8.5-10.1) Total Bilirubin 0.3mg/dL (0.0-1.2) Aspartate Amino Transf (AST/SGOT) 25U/L (0-50) Alanine Aminotransferase (ALT/SGPT) 39U/L (0-32) Alkaline Phosphatase 79U/L (25-165) Total Protein 6.1g/dL (6.4-8.4) Albumin 2.9g/dL (3.4-5.0) Procalcitonin 0.17ng/mL (0.00-0.08) Microbiology 10/28/16 Adenovirus DNA (PCR) - Final, Complete Not Detected 10/28/16 Coronavirus 229E PCR - Final, Complete Not Detected 10/28/16 Coronavirus HKU1 PCR - Final, Complete Not Detected 10/28/16 Coronavirus NL63 PCR - Final, Complete Not Detected 10/28/16 Coronavirus OC43 PCR - Final, Complete Not Detected 10/28/16 Influenza Type A (PCR) - Final, Complete Not Detected 10/28/16 Influenza Type B (PCR) - Final, Complete Not Detected 10/28/16 Human Metapneumovirus (PCR) (ALLISON) - Final, Complete Not Detected 10/28/16 Rhinovirus (PCR)(ALLISON) - Final, Complete Not Detected 10/28/16 Parainfluenza Virus Type 1 (PCR) - Final, Complete Not Detected 10/28/16 Parainfluenza Virus Type 2 (PCR) - Final, Complete Not Detected 10/28/16 Parainfluenza Virus Type 3 (PCR) - Final, Complete Not Detected 10/28/16 Parainfluenza Virus Type 4 (NAAT) - Final, Complete Not Detected 10/28/16 Respiratory Syncytial Virus (PCR)MN - Final, Complete Not Detected 10/28/16 Chlamydia pneumoniae (PCR) - Final, Complete Not Detected 10/28/16 Mycoplasma pneumoniae DNA Detection - Final, Complete 10/28/16 Urine Culture - Final, Complete Mixed Urogenital Denae Result Diagram: 10/31/16 0550 10/31/16 0550 Microbiology Microbiology ALLISON CULT SPUTUM GS Final 10/29/16-0529 SPT GRAM STAIN MODERATE POLYS RARE EPITHELIAL CELLS FEW MIXED NORMAL DENAE MANY GRAM NEG RODS This Spec is of good Quality and acceptable for Cult RESPIRATORY CULTURE Preliminary 10/30/16-956 Organism 1 HAEMOPHILUS INFLUENZAE COLONY COUNT/QUANTITY HEAVY GROWTH SENSITIVITY COMMENTS Susceptibilty testing to follow. BETA LACTAM (CEFINASE) RESISTANT Organism 2 WITH NORMAL DENAE COLONY COUNT/QUANTITY SCANT GROWTH BETA LACTAM (CEFINASE) RESISTANT Microbiology ADENOVIRUS RESPIRATORY PCR Final 10/28/16-1709 Not Detected CORONOVIRUS 229E Final 10/28/16 Not Detected CORONOVIRUS HKU1 Final 10/28/16 Not Detected CORONOVIRUS NL63 Final 10/28/16 Not Detected CORONOVIRUS OC43 Final 10/28/16-1709 Not Detected INFLUENZA A PCR Final 10/28/16-1709 Not Detected INFLUENZA B PCR Final 10/28/16 Not Detected METAPNEUMOVIRUS PCR Final 10/28/16 Not Detected RHINOVIRUS OR ENTEROVIRUS PCR Final 10/28/16 Not Detected PARAINFLUENZA 1 PCR Final 10/28/16 Not Detected PARAINFLUENZA 2 PCR Final 10/28/16 Not Detected PARAINFLUENZA 3 PCR Final 10/28/16 Not Detected PARAINFLUENZA 4 PCR Final 10/28/16 Not Detected CONTINUED ON NEXT PAGE RUN DATE: 10/28/16 [facility] LIVE PAGE 2 RUN TIME: 1710 Specimen Inquiry PHYSICIAN Patient: LESLY WILSON I [id number] (Continued) Specimen: [id number] Collected: 10/28/16-1144 Received: 10/28/16-1424 (Continued) Procedure Result Verified Site RESP SYNCYTIAL VIRUS PCR Final 10/28/16-1709 Not Detected Microbiology (Continued) CHLAMDOPHILIA PNEUMONIAE PCR Final 10/28/16-1709 Not Detected MYCOPLASMA PNEUMONIAE PCR Final 10/28/16-1709 MYCO PNEUMONIAE PCR Not Detected -------- X-Rays, CTs and MRIs Chest Xray 10/28/16 IMPRESSION: 1. Upper lobe airspace disease is most suggestive of pneumonia. Hypersensitivity pneumonitis or atypical presentation of pulmonary edema may also have this appearance. 2. Moderate pulmonary vascular congestion. Chari B-lines are suggestive of pulmonary edema. Please correlate clinically. Dictated by: Rolf Disla M.D. on 10/28/2016 at 8:48 Approved by: Rolf Disla M.D. on 10/28/2016 at 8:53 Repeat CXR 10/29/16 IMPRESSION: 1. Persistent but decreased bilateral confluent airspace opacities in the upper lung zones are nonspecific but likely reflect consolidation and pneumonia. However, the differential is broad and correlation is recommended clinically as well as further evaluation with CT if indicated. 2. Increased left retrocardiac consolidation or atelectasis. Dictated by: Flavio Arellano M.D. on 10/29/2016 at 9:45 Approved by: Flavio Arellano M.D. on 10/29/2016 at 9:47 Cardiac Echo Impressions ECHO on 10/28/16 Interpretation Summary 1) Normal left ventricular thickness and size with severely reduced systolic function (EF 25-30%). 2) Severe global hypokinesis of the apical 2/3 of the LV. 3) No significant valvular abnormalities. 4) Compared to the Echo done 07/23/2016, LV function has decreased from normal to severely reduced on today's study. Reading Physician:01:13 PM ECHO on 10/30/16 Interpretation Summary The left ventricle is normal in size. The ejection fraction is estimated to be 40-45%. Compared to the prior exam, left ventricular function is moderately improved. Basal segments are more hypercontractile compared to exam from two days ago. There is also improvement in the apical contractility. Mid and distal segments are still significantly hypokinetic. There is no LV thrombus. Additional Diagnostics Cardiac Cath on 10/27/16 ANGIOGRAPHIC FINDINGS: 1. Right coronary artery is dominant, free of any significant disease. Mild luminal irregularities are noted. 2. LAD transapical vessels. Mild luminal irregularities of 10% to 20% in the mid segment past the second major diagonal. No critical stenosis is noted. 3. Circumflex is a nondominant, small vessel free of any significant disease. 4. Left heart catheterization revealed an LVEDP that ranged from 27-30. Hand injection showed hypercontractile basal constrictors with the distal half of the LV ring akinetic to dyskinetic suggestive of stress cardiomyopathy. In summary, no significant fixed epicardial coronary artery disease. Delmar Skelton MD 10/27/16 3137 Assessment & Plan Ms. Lesly Wilson is an extremely pleasant 76-year-old female with a history of type II diabetes with polyneuropathy, hypothyroidism, hypertension, who presented to her PCP, then [facility], with chief complaint of sudden onset of left-sided chest pain with radiation to her left arm and left side of neck, which followed the rupture of her left tympanic membrane. Initial EKG performed at [place] revealed ST elevation, patient was immediately given metoprolol, morphine, and heparin. Stat cath completed at our facility revealed a likely etiology of her chest pain as stress-induced cardiomyopathy. She was admitted for evaluation and treatment of stress-induced cardiomyopathy in the setting of suspected underlying otic infection and pneumonia. The goal for today is to continue diuresing, continue antibiotics and try to decrease supplemental oxygen as tolerated. Starting tomorrow 11/01/2016 cut down Lasix from 40 to 20 mg daily. When appropriate, she will be evaluated by physical therapy. Non-ischemic cardiomyopathy likely Stress-induced cardiomyopathy, acute, present on admission, under evaluation -Likely secondary to community-acquired pneumonia - CC: Left-sided chest pain with radiation to left upper extremity and neck; stat EKG was indicative of ST elevation in leads V2-V5 - Stat cath: 10/27/2016 revealed findings indicative of stress-induced cardiomyopathy -Repeat chest x-ray shows decreasing volume overload and this is consistent with her much improved respiratory distress with diuresis. - Patient receiving furosemide 40 mg po daily - Continue spironolactone 12.5mg daily -Per cardiology, cut down losartan from 50 mg to 25 mg daily to optimize beta-arvind. Increase carvedilol to 6.25 mg twice a day. -Starting tomorrow 11/01/2016 cut down Lasix from 40 to 20 mg daily -She was given heparin gtt due to high risk for LV thrombus formation but this was stopped - intermittent epistaxis, as well as coughing up some dark phlegm, per cardiology, will stop IV heparin -repeated a limited echocardiogram on 10/31/2016 showed left ventricular function is moderately improved and no LV thrombus. Ejection fraction is estimated to be 40-45%. - Recommend followup with Cardiology as an outpatient with Dr. Skelton in two weeks with electrolytes. Acute systolic heart failure, present on admission, under evaluation -Likely secondary to nonischemic cardiomyopathy as coronary angiography did not show any obstructive coronary artery disease. - Echo revealed Normal left ventricular thickness and size with severely reduced systolic function (EF 25-30%) compared to ECHO done in 06/2016 -repeated a limited echocardiogram on 10/31/2016 showed left ventricular function is moderately improved and no LV thrombus. Ejection fraction is estimated to be 40-45%. --Starting tomorrow 11/01/2016 cut down Lasix from 40 to 20 mg daily Acute Hypoxemic Respiratory Failure, present on admission, resolving -likley secondary to pneumonia and stress cardiomyopathy with resultant pulmonary edema -Patient has been on high flow oxygen -Now on Oxymask 9L and reports breathing has improved -Ordered incentive spirometry and Acappella Possible Upper Lobe community-acquired Pneumonia, ongoing -As evidenced by Chest X-Ray -Procalcitonin increased from 0.07 to 0.13, WBC 12.7 -Today, pro-calcitonin decreased to 0.26, WBC went down to 14.3 -Repeat procalcitonin in the am -Lactic acid normalized to 1.1 -respiratory PCR analysis has been negative thus far -sputum cultures grew H. Influenza, expanded duty dental assistant to beta-lactam. -Patient was given augmentin and add azithromycin -Discontinue antibiotics to 2 g ceftriaxone and azithromycin -Continue aztreonam Electrolyte abnormalities, present on admission, under evaluation -Correct phosphate, magnesium and potassium -Recheck labs in am , showed improved potassium and magnesium Left tympanic membrane rupture, acute, present on admission, under evaluation - Patient had evidence of blood within left ear canal - Patient reports URI/viral infection as etiology, as discussed with her primary care - We will obtain respiratory swab to further delineate viral versus bacterial etiology for her vague/mild URI sx - Also initiation of Augmentin x14d, as pt is diabetic, risk for pseudomonas otitis - No otic ofloxacin secondary to pt allergy to fluoroquinolones - Strong consideration of ENT referral for prompt/stat FU when discharged - Pt reports established with Dr. Cruz in [place]- pt would like to be seen by his practice if possible Acute hypoxemia, present on admission,ongoing -This morning, patient complained of SOB -Likely secondary to acute systolic heart failure and possible upper lobe pneumonia -Morning ABGs revealed evidence of hypoxemia, which resolved with High flow Oxygen -Continue to monitor oxygen saturation Minimal CAD, present on admission, ongoing - Continue aspirin 81mg daily - Continue atorvastatin 10mg qhs History of diabetes with peripheral nephropathy, non-insulin using, chronic, presumed stable - Home medications include metformin - Holding metformin during hospitalization - Institution of low-dose correctional scale - Continue Gabapentin nightly Hypertension, chronic, well-controlled - We will resume home medications, including losartan, and initiation of metoprolol secondary to stress-induced cardiomyopathy treatment - Anti-hypertensive medications as above Insomnia, chronic, presumed stable - Patient reports new medication of Ambien to help with sleep aid - Due to patient's naivety to medication, we will not initiate this medication during this hospitalization - Attempt gabapentin, and other modalities for sleep Hypothyroidism, chronic, stable -Most recent TSH 1.050 -Continue levothyroxine PRN fever, bowel, nausea, pain DVT: Hep subcutaneous Diet: Heart/carb GI: H2B Code: FULL CODE Disposition: The goal for today is to continue diuresing, continue antibiotics and try to decrease supplemental oxygen as tolerated. Starting tomorrow 2016 cut down Lasix from 40 to 20 mg daily. When appropriate, she will be evaluated by physical therapy. Likely to discharge in 2-3 days. Pain Evaluation: Adequate Pain Control GI Prophylaxis: H2 arvind VTE Prophylaxis: Other (stopped heparin drip due to bleeding) VTE Mechanical Devices: Intermittant Pneumatic CD Resuscitation Status: CPR: Attempt Resuscitation Attending Statement The patient was seen and examined together with Dr. Sr on 10/31/2016 and I agree with the history, exam and plan as outlined in the note above. . Kenzie Sr DO Oct 31, 2016 07:01 Dk Shoemaker MD Nov 01, 2016 07:45
[2016-11-01] VITALS (12 sets, daily range): BP systolic 91–111; BP diastolic 46–66; PULSE 78–104; RESP 15–23; O2SAT 86–95
[2016-11-01] MEDS: Heparin 5,000 Unit/mL Inj SUBQ SCH ×3 (02:55→16:43)
[2016-11-01 03:27] LABS: Mean Corpuscular Hemoglobin 29.1 pg (27.0-35.0); Mean Corpuscular Volume 88.3 fL (81-100)
[2016-11-01] MEDS: AZTREONAM IV SCH ×3 (04:24→21:14)
[2016-11-01] MEDS: DEXTROSE 5% IV SCH ×3 (04:24→21:14)
[2016-11-01] MEDS: Insulin LISPRO 300 Unit/3 mL Inj SUBQ SCH ×4 (08:00→21:27)
--- NOTE | 2016-11-01 20:51 | PCM.PNMED ---
Subjective Date of Service Nov 01, 2016 Subjective overnight: No acute events overnight Today: Patient states that she feels much better today. She feels like she is improving every day. She continues to use the incentive spirometer which typically results in coughing after the first or second attempt but improves with time. The patient believes a cappella device is helping break up the congestion in her chest. The patient believes she will be ready to go home within a few days. Exam Vital Signs Vital Sign - Last Date Time Temp Pulse Resp B/P Pulse Ox O2 Delivery O2 Flow Rate FiO2 11/01/16 06:04 104 11/01/16 02:55 37.0 20 101/66 93 OxyMask 9.00 10/29/16 11:48 60 Intake and Output 10/31/16 10/31/16 11/01/16 Cumulative From/Thru 15:00 23:00 07:00 10/27/16 20:18 - 11/01/16 06:44 Intake Total 940 ml 715 ml 7896 ml Output Total 1450 ml 1275 ml 43224 ml Balance -510 ml -560 ml -2874 ml Intake Oral 880 ml 400 ml 5138 ml IV Total 60 ml 315 ml 2758 ml Output Urine Total 1450 ml 1275 ml 22342 ml # Voids 1 9 # Bowel Movements 1 Exam General: Patient is lying comfortably on bed, AAOX3, not in acute distress, cooperative and pleasant. Eyes: PERRLA, EOMI, no scleral icterus, noninjected conjunctiva, HENT: head normocephalic and atraumatic,left ear with crusted blood on the external ear canal, evidence of ruptured tympanic membrane, oropharynx clear moist mucous membranes noted Neck: neck supple, non-tender, no lymphadenopathy, trachea midline, no JVD CV: regular rate and rhythm, s1 and s2 heard, no murmur, radial pulses 2+ and equal bilaterally, no rubs murmurs or gallops, no edema Lungs: crackles on lung bases bilaterally, upper lobe aeration sounds improved, on 3 L via nasal cannula supplemental oxygen Abdomen: normoactive bowel sounds on 4Q, soft, non-distended, non-tender to palpation, no organomegally, Skin: warm and dry Neuro: Grossly neurologically intact, able to move all extremities Psych: Normal mood and affect Lab and Diagnostics Result Diagram: 11/01/1631411/01/16314 Microbiology Microbiology ALLISON CULT SPUTUM GS Final 10/29/16 SPT GRAM STAIN MODERATE POLYS RARE EPITHELIAL CELLS FEW MIXED NORMAL DENAE MANY GRAM NEG RODS This Spec is of good Quality and acceptable for Cult RESPIRATORY CULTURE Preliminary 10/30/16 Organism 1 HAEMOPHILUS INFLUENZAE COLONY COUNT/QUANTITY HEAVY GROWTH SENSITIVITY COMMENTS Susceptibilty testing to follow. BETA LACTAM (CEFINASE) RESISTANT Organism 2 WITH NORMAL DENAE COLONY COUNT/QUANTITY SCANT GROWTH BETA LACTAM (CEFINASE) RESISTANT Microbiology ADENOVIRUS RESPIRATORY PCR Final 10/28/16-1709 Not Detected CORONOVIRUS 229E Final 10/28/16 Not Detected CORONOVIRUS HKU1 Final 10/28/16 Not Detected CORONOVIRUS NL63 Final 10/28/16 Not Detected CORONOVIRUS OC43 Final 10/28/16 Not Detected INFLUENZA A PCR Final 10/28/16 Not Detected INFLUENZA B PCR Final 10/28/16 Not Detected METAPNEUMOVIRUS PCR Final 10/28/16 Not Detected RHINOVIRUS OR ENTEROVIRUS PCR Final 10/28/16 Not Detected PARAINFLUENZA 1 PCR Final 10/28/16 Not Detected PARAINFLUENZA 2 PCR Final 10/28/16 Not Detected PARAINFLUENZA 3 PCR Final 10/28/16 Not Detected PARAINFLUENZA 4 PCR Final 10/28/16 Not Detected CONTINUED ON NEXT PAGE RUN DATE: 10/28/16 [facility] LIVE PAGE 2 RUN TIME: 1710 Specimen Inquiry PHYSICIAN Patient: LESLY WILSON I [id number] (Continued) Specimen: [id number] Collected: 10/28/16-1144 Received: 10/28/16 (Continued) Procedure Result Verified Site RESP SYNCYTIAL VIRUS PCR Final 10/28/16-1709 Not Detected Microbiology (Continued) CHLAMDOPHILIA PNEUMONIAE PCR Final 10/28/16-1709 Not Detected MYCOPLASMA PNEUMONIAE PCR Final 10/28/16-1709 MYCO PNEUMONIAE PCR Not Detected -------- X-Rays, CTs and MRIs Chest Xray 10/28/16 IMPRESSION: 1. Upper lobe airspace disease is most suggestive of pneumonia. Hypersensitivity pneumonitis or atypical presentation of pulmonary edema may also have this appearance. 2. Moderate pulmonary vascular congestion. Chari B-lines are suggestive of pulmonary edema. Please correlate clinically. Dictated by: Rolf Disla M.D. on 10/28/2016 at 8:48 Approved by: Rolf Disla M.D. on 10/28/2016 at 8:53 Repeat CXR 10/29/16 IMPRESSION: 1. Persistent but decreased bilateral confluent airspace opacities in the upper lung zones are nonspecific but likely reflect consolidation and pneumonia. However, the differential is broad and correlation is recommended clinically as well as further evaluation with CT if indicated. 2. Increased left retrocardiac consolidation or atelectasis. Dictated by: Flavio Arellano M.D. on 10/29/2016 at 9:45 Approved by: Flavio Arellano M.D. on 10/29/2016 at 9:47 Cardiac Echo Impressions ECHO on 10/28/16 Interpretation Summary 1) Normal left ventricular thickness and size with severely reduced systolic function (EF 25-30%). 2) Severe global hypokinesis of the apical 2/3 of the LV. 3) No significant valvular abnormalities. 4) Compared to the Echo done 07/23/2016, LV function has decreased from normal to severely reduced on today's study. Reading Physician:01:13 PM ECHO on 10/30/16 Interpretation Summary The left ventricle is normal in size. The ejection fraction is estimated to be 40-45%. Compared to the prior exam, left ventricular function is moderately improved. Basal segments are more hypercontractile compared to exam from two days ago. There is also improvement in the apical contractility. Mid and distal segments are still significantly hypokinetic. There is no LV thrombus. Additional Diagnostics Cardiac Cath on 10/27/16 ANGIOGRAPHIC FINDINGS: 1. Right coronary artery is dominant, free of any significant disease. Mild luminal irregularities are noted. 2. LAD transapical vessels. Mild luminal irregularities of 10% to 20% in the mid segment past the second major diagonal. No critical stenosis is noted. 3. Circumflex is a nondominant, small vessel free of any significant disease. 4. Left heart catheterization revealed an LVEDP that ranged from 27-30. Hand injection showed hypercontractile basal constrictors with the distal half of the LV ring akinetic to dyskinetic suggestive of stress cardiomyopathy. In summary, no significant fixed epicardial coronary artery disease. Delmar Skelton MD 10/27/16 5114 Assessment & Plan Ms. Lesly Wilson is an extremely pleasant 76-year-old female with a history of type II diabetes with polyneuropathy, hypothyroidism, hypertension, who presented to her PCP, then [facility], with chief complaint of sudden onset of left-sided chest pain with radiation to her left arm and left side of neck, which followed the rupture of her left tympanic membrane. Initial EKG performed at [place] revealed ST elevation, patient was immediately given metoprolol, morphine, and heparin. Stat cath completed at our facility revealed a likely etiology of her chest pain as stress-induced cardiomyopathy. She was admitted for evaluation and treatment of stress-induced cardiomyopathy in the setting of suspected underlying otic infection and pneumonia. The goal for today is to continue diuresing, continue antibiotics and try to decrease supplemental oxygen as tolerated. Starting tomorrow 11/01/2016 cut down Lasix from 40 to 20 mg daily. When appropriate, she will be evaluated by physical therapy. Non-ischemic cardiomyopathy likely Stress-induced cardiomyopathy, acute, present on admission, under evaluation -Likely secondary to community-acquired pneumonia - CC: Left-sided chest pain with radiation to left upper extremity and neck; stat EKG was indicative of ST elevation in leads V2-V5 - Stat cath: 10/27/2016 revealed findings indicative of stress-induced cardiomyopathy -Repeat chest x-ray shows decreasing volume overload and this is consistent with her much improved respiratory distress with diuresis. - Patient receiving furosemide 40 mg po daily - Continue spironolactone 12.5mg daily -Per cardiology, cut down losartan from 50 mg to 25 mg daily to optimize beta-arvind. Increase carvedilol to 6.25 mg twice a day. -Starting tomorrow 11/01/2016 cut down Lasix from 40 to 20 mg daily -She was given heparin gtt due to high risk for LV thrombus formation but this was stopped - intermittent epistaxis, as well as coughing up some dark phlegm, per cardiology, will stop IV heparin -repeated a limited echocardiogram on 10/31/2016 showed left ventricular function is moderately improved and no LV thrombus. Ejection fraction is estimated to be 40-45%. - Recommend followup with Cardiology as an outpatient with Dr. Skelton in two weeks with electrolytes. Acute systolic heart failure, present on admission, under evaluation -Likely secondary to nonischemic cardiomyopathy as coronary angiography did not show any obstructive coronary artery disease. - Echo revealed Normal left ventricular thickness and size with severely reduced systolic function (EF 25-30%) compared to ECHO done in 06/2016 -repeated a limited echocardiogram on 10/31/2016 showed left ventricular function is moderately improved and no LV thrombus. Ejection fraction is estimated to be 40-45%. --Starting tomorrow 11/01/2016 cut down Lasix from 40 to 20 mg daily Acute Hypoxemic Respiratory Failure, present on admission, resolving -likley secondary to pneumonia and stress cardiomyopathy with resultant pulmonary edema -Patient has been on high flow oxygen -Now on Oxymask 9L and reports breathing has improved -Ordered incentive spirometry and Acappella Community-acquired Pneumonia secondary to Haemophilus influenza, ongoing -As evidenced by Chest X-Ray -Procalcitonin increased from 0.07 to 0.13, WBC 12.7 -Today, pro-calcitonin decreased to 0.26, WBC went down to 14.3 -Repeat procalcitonin in the am -Lactic acid normalized to 1.1 -respiratory PCR analysis has been negative thus far -sputum cultures grew H. Influenza, assistant professor of education to beta-lactam. -Patient was given augmentin and add azithromycin -Discontinue antibiotics to 2 g ceftriaxone and azithromycin -Continue aztreonam, sensitivities show patient may be discharged on Augmentin or doxycycline Electrolyte abnormalities, present on admission, under evaluation -Correct phosphate, magnesium and potassium -Recheck labs in am , showed improved potassium and magnesium Left tympanic membrane rupture, acute, present on admission, under evaluation - Patient had evidence of blood within left ear canal - Patient reports URI/viral infection as etiology, as discussed with her primary care - We will obtain respiratory swab to further delineate viral versus bacterial etiology for her vague/mild URI sx - Also initiation of Augmentin x14d, as pt is diabetic, risk for pseudomonas otitis - No otic ofloxacin secondary to pt allergy to fluoroquinolones - Strong consideration of ENT referral for prompt/stat FU when discharged - Pt reports established with Dr. Cruz in [place]- pt would like to be seen by his practice if possible Acute hypoxemia, present on admission,ongoing -This morning, patient complained of SOB -Likely secondary to acute systolic heart failure and possible upper lobe pneumonia -Morning ABGs revealed evidence of hypoxemia, which resolved with High flow Oxygen -Continue to monitor oxygen saturation Minimal CAD, present on admission, ongoing - Continue aspirin 81mg daily - Continue atorvastatin 10mg qhs History of diabetes with peripheral nephropathy, non-insulin using, chronic, presumed stable - Home medications include metformin - Holding metformin during hospitalization - Institution of low-dose correctional scale - Continue Gabapentin nightly Hypertension, chronic, well-controlled - We will resume home medications, including losartan, and initiation of metoprolol secondary to stress-induced cardiomyopathy treatment - Anti-hypertensive medications as above Insomnia, chronic, presumed stable - Patient reports new medication of Ambien to help with sleep aid - Due to patient's naivety to medication, we will not initiate this medication during this hospitalization - Attempt gabapentin, and other modalities for sleep Hypothyroidism, chronic, stable -Most recent TSH 1.050 -Continue levothyroxine PRN fever, bowel, nausea, pain DVT: Hep subcutaneous Diet: Heart/carb GI: H2B Code: FULL CODE Disposition: Patient will need to be assessed by his occult therapy prior to discharge and with continued improvement in pneumonia likely to discharge in 1- 2 days. GI Prophylaxis: H2 arvind VTE Prophylaxis: Other (stopped heparin drip due to bleeding) VTE Mechanical Devices: Intermittant Pneumatic CD Resuscitation Status: CPR: Attempt Resuscitation Attending Statement The patient was seen and examined together with Dr. Leiva on 11/01/2016 and I agree with the history, exam and plan as outlined in the note above. . Bruce Leiva DO Nov 01, 2016 08:00 Dk Shoemaker MD Nov 02, 2016 13:55
[2016-11-02] VITALS (9 sets, daily range): BP systolic 87–103; BP diastolic 46–57; PULSE 73–88; RESP 16–24; O2SAT 93–96
[2016-11-02] MEDS: Heparin 5,000 Unit/mL Inj SUBQ SCH ×3 (00:40→16:30)
[2016-11-02] MEDS: AZTREONAM IV SCH ×3 (03:39→20:24)
[2016-11-02] MEDS: DEXTROSE 5% IV SCH ×3 (03:39→20:24)
[2016-11-02 04:08] LABS: BASOPHILS % (AUTO) 0.3 % (0-3); EOSINOPHILS % (AUTO) 2.6 % (0-5); MONOCYTES % (AUTO) 11.4 % (4-12); Mean Corpuscular Hemoglobin 29.3 pg (27.0-35.0); NEUTROPHILS % (AUTO) 53.1 % (40-74); Platelet Count 316 bil/L (150-400)
[2016-11-02] MEDS: Insulin LISPRO 300 Unit/3 mL Inj SUBQ SCH ×4 (09:37→21:13)
--- NOTE | 2016-11-02 13:22 | PCM.PNMED ---
Subjective Date of Service Nov 02, 2016 Subjective Patient was seen and examined today, patient states that she feels better. She notices improvement in her breathing. She reports that she has been using her incentive spirometer and Acapella regularly. In addition, she was ambulating with physical therapy and tolerating it well. She notes some shortness of breath and feeling fatigue after walking around the halls. She denies chest pain, shortness of breath, nausea, vomiting, abdominal pain, dysuria. There were no acute events overnight. Patient states that she slept fine. Exam Vital Signs Vital Sign - Last Date Time Temp Pulse Resp B/P Pulse Ox O2 Delivery O2 Flow Rate FiO2 11/02/16 03:30 36.9 83 24 101/57 95 OxyMask 6.00 10/29/16 11:48 60 Intake and Output 11/01/16 11/01/16 11/02/16 Cumulative From/Thru 15:00 23:00 07:00 10/27/16 20:18 - 11/02/16 05:44 Intake Total 73 ml 1080 ml 465 ml 9514 ml Output Total 1700 ml 900 ml 70460 ml Balance 73 ml -620 ml -435 ml -3856 ml Intake Oral 1080 ml 300 ml 6518 ml IV Total 73 ml 165 ml 2996 ml Output Urine Total 1700 ml 900 ml 31142 ml # Voids 2 11 # Bowel Movements 1 2 Exam General: Patient is lying comfortably in bed, AAOX3, not in acute distress, cooperative and pleasant, was seen ambulating with physical therapy today HEENT: head normocephalic and atraumatic, PERRLA, EOMI, no scleral icterus, noninjected conjunctiva, evidence of nasal congestion, left ear with crusted blood on the external ear canal, evidence of ruptured tympanic membrane Neck: neck supple, non-tender, no lymphadenopathy, trachea midline, no JVD CV: regular rate and rhythm, s1 and s2 heard, no murmur, radial pulses 2+ and equal bilaterally, no rubs murmurs or gallops, no edema Lungs: crackles on lung bases bilaterally, upper lobe aeration sounds improved, on 3-5 supplemental oxygen Abdomen: normoactive bowel sounds on 4Q, soft, non-distended, non-tender to palpation, no organomegally, Skin: warm and dry Musculoskeletal: 5/5 UE and LE strength bilaterally, full ROM bilaterally Neuro: Grossly neurologically intact, cranial nerves II through XII intact, Psych: Normal mood and affect IVs and Medications Medications Reviewed: Medications were reviewed in detail Lab and Diagnostics Result Diagram: 11/02/1624411/02/16244 Microbiology Microbiology ALLISON CULT SPUTUM GS Final 10/29/16-528 SPT GRAM STAIN MODERATE POLYS RARE EPITHELIAL CELLS FEW MIXED NORMAL DENAE MANY GRAM NEG RODS This Spec is of good Quality and acceptable for Cult RESPIRATORY CULTURE Preliminary 10/30/16 Organism 1 HAEMOPHILUS INFLUENZAE COLONY COUNT/QUANTITY HEAVY GROWTH SENSITIVITY COMMENTS Susceptibilty testing to follow. BETA LACTAM (CEFINASE) RESISTANT Organism 2 WITH NORMAL DENAE COLONY COUNT/QUANTITY SCANT GROWTH BETA LACTAM (CEFINASE) RESISTANT Microbiology ADENOVIRUS RESPIRATORY PCR Final 10/28/16-1709 Not Detected CORONOVIRUS 229E Final 10/28/16 Not Detected CORONOVIRUS HKU1 Final 10/28/16 Not Detected CORONOVIRUS NL63 Final 10/28/16 Not Detected CORONOVIRUS OC43 Final 10/28/16 Not Detected INFLUENZA A PCR Final 10/28/16 Not Detected INFLUENZA B PCR Final 10/28/16 Not Detected METAPNEUMOVIRUS PCR Final 10/28/16 Not Detected RHINOVIRUS OR ENTEROVIRUS PCR Final 10/28/16 Not Detected PARAINFLUENZA 1 PCR Final 10/28/16 Not Detected PARAINFLUENZA 2 PCR Final 10/28/16 Not Detected PARAINFLUENZA 3 PCR Final 10/28/16 Not Detected PARAINFLUENZA 4 PCR Final 10/28/16 Not Detected CONTINUED ON NEXT PAGE RUN DATE: 10/28/[address] [facility] LIVE PAGE 2 RUN TIME: 1710 Specimen Inquiry PHYSICIAN Patient: LESLY WILSON I [id number] (Continued) Specimen: [id number] Collected: 10/28/16 Received: 10/28/16 (Continued) Procedure Result Verified Site RESP SYNCYTIAL VIRUS PCR Final 10/28/16-1709 Not Detected Microbiology (Continued) CHLAMDOPHILIA PNEUMONIAE PCR Final 10/28/16-1709 Not Detected MYCOPLASMA PNEUMONIAE PCR Final 10/28/16-1709 MYCO PNEUMONIAE PCR Not Detected -------- X-Rays, CTs and MRIs Chest Xray 10/28/16 IMPRESSION: 1. Upper lobe airspace disease is most suggestive of pneumonia. Hypersensitivity pneumonitis or atypical presentation of pulmonary edema may also have this appearance. 2. Moderate pulmonary vascular congestion. Chari B-lines are suggestive of pulmonary edema. Please correlate clinically. Dictated by: Rolf Disla M.D. on 10/28/2016 at 8:48 Approved by: Rolf Disla M.D. on 10/28/2016 at 8:53 Repeat CXR 10/29/16 IMPRESSION: 1. Persistent but decreased bilateral confluent airspace opacities in the upper lung zones are nonspecific but likely reflect consolidation and pneumonia. However, the differential is broad and correlation is recommended clinically as well as further evaluation with CT if indicated. 2. Increased left retrocardiac consolidation or atelectasis. Dictated by: Flavio Arellano M.D. on 10/29/2016 at 9:45 Approved by: Flavio Arellano M.D. on 10/29/2016 at 9:47 Cardiac Echo Impressions ECHO on 10/28/16 Interpretation Summary 1) Normal left ventricular thickness and size with severely reduced systolic function (EF 25-30%). 2) Severe global hypokinesis of the apical 2/3 of the LV. 3) No significant valvular abnormalities. 4) Compared to the Echo done 07/23/2016, LV function has decreased from normal to severely reduced on today's study. Reading Physician:01:13 PM ECHO on 10/30/16 Interpretation Summary The left ventricle is normal in size. The ejection fraction is estimated to be 40-45%. Compared to the prior exam, left ventricular function is moderately improved. Basal segments are more hypercontractile compared to exam from two days ago. There is also improvement in the apical contractility. Mid and distal segments are still significantly hypokinetic. There is no LV thrombus. Additional Diagnostics Cardiac Cath on 10/27/16 ANGIOGRAPHIC FINDINGS: 1. Right coronary artery is dominant, free of any significant disease. Mild luminal irregularities are noted. 2. LAD transapical vessels. Mild luminal irregularities of 10% to 20% in the mid segment past the second major diagonal. No critical stenosis is noted. 3. Circumflex is a nondominant, small vessel free of any significant disease. 4. Left heart catheterization revealed an LVEDP that ranged from 27-30. Hand injection showed hypercontractile basal constrictors with the distal half of the LV ring akinetic to dyskinetic suggestive of stress cardiomyopathy. In summary, no significant fixed epicardial coronary artery disease. Delmar Skelton MD 10/27/16 6877 Assessment & Plan Ms. Lesly Wilson is an extremely pleasant 76-year-old female with a history of type II diabetes with polyneuropathy, hypothyroidism, hypertension, who presented to her PCP, with chief complaint of sudden onset of left-sided chest pain with radiation to her left arm and left side of neck, which followed the rupture of her left tympanic membrane. Initial EKG performed at [place] revealed ST elevation, patient was immediately given metoprolol, morphine, and heparin. Stat cath completed at our facility revealed a likely etiology of her chest pain as stress-induced cardiomyopathy. She was admitted for evaluation and treatment of stress-induced cardiomyopathy in the setting of suspected underlying otic infection and pneumonia. The goal for today is to continue diuresing with Lasix that was decreased to 20 milligrams daily, continue antibiotics, try to decrease supplemental oxygen as tolerated, use incentive spirometer/acappella and ambulate with PT. Non-ischemic cardiomyopathy likely Stress-induced cardiomyopathy, acute, present on admission, under evaluation -Likely secondary to community-acquired pneumonia - CC: Left-sided chest pain with radiation to left upper extremity and neck; stat EKG was indicative of ST elevation in leads V2-V5 - Stat cath: 10/27/2016 revealed findings indicative of stress-induced cardiomyopathy -Repeat chest x-ray shows decreasing volume overload and this is consistent with her much improved respiratory distress with diuresis. - Patient receiving furosemide 40 mg po daily - Continue spironolactone 12.5mg daily -Per cardiology, cut down losartan from 50 mg to 25 mg daily to optimize beta-arvind. Increase carvedilol to 6.25 mg twice a day. -On 11/01/2016 cut down Lasix from 40 to 20 mg daily -She was given heparin gtt due to high risk for LV thrombus formation but this was stopped - intermittent epistaxis, as well as coughing up some dark phlegm, per cardiology, will stop IV heparin -repeated a limited echocardiogram on 10/31/2016 showed left ventricular function is moderately improved and no LV thrombus. Ejection fraction is estimated to be 40-45%. - Recommend followup with Cardiology as an outpatient with Dr. Skelton in two weeks with electrolytes. Acute systolic heart failure, present on admission, under evaluation -Likely secondary to nonischemic cardiomyopathy as coronary angiography did not show any obstructive coronary artery disease. - Echo revealed Normal left ventricular thickness and size with severely reduced systolic function (EF 25-30%) compared to ECHO done in 06/2016 -repeated a limited echocardiogram on 10/31/2016 showed left ventricular function is moderately improved and no LV thrombus. Ejection fraction is estimated to be 40-45%. -On 11/01/2016 cut down Lasix from 40 to 20 mg daily Acute Hypoxemic Respiratory Failure, present on admission, resolving -likely secondary to pneumonia and stress cardiomyopathy with resultant pulmonary edema -Patient was initially on high flow oxygen -Now down 3-5 L on supplemental oxygen and reports breathing has improved -Patient has been using incentive spirometry and Acappella Community-acquired Pneumonia secondary to Haemophilus influenza, ongoing -As evidenced by Chest X-Ray -Procalcitonin increased from 0.07 to 0.13, WBC 12.7 -Today, pro-calcitonin decreased to 0.26, WBC went down to 14.3 -Repeat procalcitonin in the am -Lactic acid normalized to 1.1 -respiratory PCR analysis has been negative thus far -sputum cultures grew H. Influenza, resistant to beta-lactam. -Patient was given augmentin and azithromycin -Discontinue antibiotics and switched to 2 g ceftriaxone and azithromycin. These were all discontinued as bacteria is beta lactam resistant -Continue aztreonam, sensitivities show patient may be discharged on Augmentin or doxycycline Electrolyte abnormalities, present on admission, under evaluation -Correct phosphate, magnesium and potassium -Recheck labs in am , showed improved potassium and magnesium Left tympanic membrane rupture, acute, present on admission, under evaluation - Patient had evidence of blood within left ear canal - Patient reports URI/viral infection as etiology, as discussed with her primary care - We will obtain respiratory swab to further delineate viral versus bacterial etiology for her vague/mild URI sx - Also initiation of Augmentin x14d, as pt is diabetic, risk for pseudomonas otitis - No otic ofloxacin secondary to pt allergy to fluoroquinolones - Strong consideration of ENT referral for prompt/stat FU when discharged - Pt reports established with Dr. Cruz in [place]- pt would like to be seen by his practice if possible Acute hypoxemia, present on admission,ongoing -This morning, patient complained of SOB -Likely secondary to acute systolic heart failure and possible upper lobe pneumonia -Morning ABGs revealed evidence of hypoxemia, which resolved with High flow Oxygen -Continue to monitor oxygen saturation Minimal CAD, present on admission, ongoing - Continue aspirin 81mg daily - Continue atorvastatin 10mg qhs History of diabetes with peripheral nephropathy, non-insulin using, chronic, presumed stable - Home medications include metformin - Holding metformin during hospitalization - Institution of low-dose correctional scale - Continue Gabapentin nightly Hypertension, chronic, well-controlled - We will resume home medications, including losartan, and initiation of metoprolol secondary to stress-induced cardiomyopathy treatment - Anti-hypertensive medications as above Insomnia, chronic, presumed stable - Patient reports new medication of Ambien to help with sleep aid - Due to patient's naivety to medication, we will not initiate this medication during this hospitalization - Attempt gabapentin, and other modalities for sleep Hypothyroidism, chronic, stable -Most recent TSH 1.050 -Continue levothyroxine PRN fever, bowel, nausea, pain DVT: Hep subcutaneous Diet: Heart/carb GI: H2B Code: FULL CODE Disposition: Patient started ambulating with physical therapy today and with continued improvement in pneumonia likely to discharge in 1-2 days. GI Prophylaxis: H2 arvind VTE Prophylaxis: Other (stopped heparin drip due to bleeding) VTE Mechanical Devices: Intermittant Pneumatic CD Resuscitation Status: CPR: Attempt Resuscitation Attending Statement The patient was seen and examined together with Dr. Sr on 11/02/16 and I have added additional information to the note above. Keznie Sr DO Nov 02, 2016 06:21 Dominga Guthrie DO Nov 06, 2016 20:55 GI Prophylaxis: H2 arvind VTE Prophylaxis: Other (stopped heparin drip due to bleeding) VTE Mechanical Devices: Intermittant Pneumatic CD Resuscitation Status: CPR: Attempt Resuscitation Kenzie Sr DO Nov 02, 2016 06:21
[2016-11-03] VITALS (9 sets, daily range): BP systolic 87–106; BP diastolic 48–63; PULSE 73–101; RESP 16–24; O2SAT 90–95
[2016-11-03] MEDS: Heparin 5,000 Unit/mL Inj SUBQ SCH ×4 (00:34→23:54)
[2016-11-03 03:03] LABS: BASOPHILS % (AUTO) 0.4 % (0-3); MONOCYTES % (AUTO) 9.7 % (4-12); Mean Corpuscular Hemoglobin 29.1 pg (27.0-35.0); Mean Corpuscular Volume 87.2 fL (81-100); NEUTROPHILS % (AUTO) 53.1 % (40-74); Platelet Count 355 bil/L (150-400)
[2016-11-03] MEDS: AZTREONAM IV SCH ×2 (03:52→12:08)
[2016-11-03] MEDS: DEXTROSE 5% IV SCH ×2 (03:52→12:08)
[2016-11-03] MEDS: Insulin LISPRO 300 Unit/3 mL Inj SUBQ SCH ×4 (09:25→21:52)
--- NOTE | 2016-11-03 15:37 | PCM.PNMED ---
Subjective Date of Service Nov 03, 2016 Subjective Ms. Lesly Wilson is an extremely pleasant 76-year-old female with a history of type II diabetes with polyneuropathy, hypothyroidism, hypertension, who presented to her PCP, then formerly [facility], with chief complaint of sudden onset of left-sided chest pain with radiation to her left arm and left side of neck, which followed the rupture of her left tympanic membrane. Initial EKG performed at [facility] revealed ST elevation, patient was immediately given metoprolol, morphine, and heparin. Stat cath completed at our facility revealed a likely etiology of her chest pain as stress-induced cardiomyopathy. She was admitted for evaluation and treatment of stress-induced cardiomyopathy in the setting of suspected underlying otic infection and pneumonia. Today, patient notes that she was unable to sleep well last night. This morning , she notices improvement in her breathing. She was ambulating with physical therapy who states that she was walking around in room air and saturating above the 90s. However, PT notes that when she was resting, her sats came down to as low as 88%. We discussed titrating her oxygen levels down and continuing the use of her incentive spirometer and acappella device. Overnight, nursing notes that she was experiencing SOB with exertion, O2 2L NC while awake and 5L NC when sleeping, sats 93-95%. On ROS, patient denies headaches, visual changes, weakness, fevers, chills, chest pain, shortness of breath, abdominal pain, nausea, vomiting and dysuria. Exam Vital Signs Vital Sign - Last Date Time Temp Pulse Resp B/P Pulse Ox O2 Delivery O2 Flow Rate FiO2 11/03/16 03:33 36.4 73 16 87/50 94 Nasal Cannula 5.00 10/29/16 11:48 60 Intake and Output 11/02/16 11/02/16 11/03/16 Cumulative From/Thru 15:00 23:00 07:00 10/27/16 20:18 - 11/03/16 06:15 Intake Total 1040 ml 472 ml 27007 ml Output Total 1850 ml 700 ml 26506 ml Balance -810 ml -228 ml -5494 ml Intake Oral 940 ml 400 ml 7858 ml IV Total 100 ml 72 ml 3168 ml Output Urine Total 1850 ml 700 ml 25287 ml # Voids 1 13 # Bowel Movements 2 Exam General: Patient is lying comfortably in bed, AAOX3, not in acute distress, cooperative and pleasant, was seen ambulating with physical therapy today without supplemental oxygen HEENT: head normocephalic and atraumatic, PERRLA, EOMI, no scleral icterus, noninjected conjunctiva, evidence of nasal congestion, left ear with dry, crusted blood on the external ear canal, evidence of ruptured tympanic membrane Neck: neck supple, non-tender, no lymphadenopathy, trachea midline, no JVD CV: regular rate and rhythm, s1 and s2 heard, no murmur, radial pulses 2+ and equal bilaterally, no rubs murmurs or gallops, no edema Lungs: decreased crackles on lung bases bilaterally, upper lobe aeration sounds improved, on 3-5 supplemental oxygen Abdomen: normoactive bowel sounds on 4Q, soft, non-distended, non-tender to palpation, no organomegally, Skin: warm and dry Musculoskeletal: 5/5 UE and LE strength bilaterally, full ROM bilaterally Neuro: Grossly neurologically intact, cranial nerves II through XII intact, Psych: Normal mood and affect IVs and Medications Medications Reviewed: Medications were reviewed in detail Lab and Diagnostics Result Diagram: 11/03/1629911/03/16 030 Microbiology Microbiology ALLISON CULT SPUTUM GS Final 10/29/16 SPT GRAM STAIN MODERATE POLYS RARE EPITHELIAL CELLS FEW MIXED NORMAL DENAE MANY GRAM NEG RODS This Spec is of good Quality and acceptable for Cult RESPIRATORY CULTURE Preliminary 10/30/16 Organism 1 HAEMOPHILUS INFLUENZAE COLONY COUNT/QUANTITY HEAVY GROWTH SENSITIVITY COMMENTS Susceptibilty testing to follow. BETA LACTAM (CEFINASE) RESISTANT Organism 2 WITH NORMAL DENAE COLONY COUNT/QUANTITY SCANT GROWTH BETA LACTAM (CEFINASE) RESISTANT Microbiology ADENOVIRUS RESPIRATORY PCR Final 10/28/16 Not Detected CORONOVIRUS 229E Final 10/28/16 Not Detected CORONOVIRUS HKU1 Final 10/28/16 Not Detected CORONOVIRUS NL63 Final 10/28/16 Not Detected CORONOVIRUS OC43 Final 10/28/16 Not Detected INFLUENZA A PCR Final 10/28/16 Not Detected INFLUENZA B PCR Final 10/28/16 Not Detected METAPNEUMOVIRUS PCR Final 10/28/16 Not Detected RHINOVIRUS OR ENTEROVIRUS PCR Final 10/28/16 Not Detected PARAINFLUENZA 1 PCR Final 10/28/16-1709 Not Detected PARAINFLUENZA 2 PCR Final 10/28/16-1709 Not Detected PARAINFLUENZA 3 PCR Final 10/28/16-1709 Not Detected PARAINFLUENZA 4 PCR Final 10/28/16-1709 Not Detected CONTINUED ON NEXT PAGE RUN DATE: 10/28/16 [facility] LIVE PAGE 2 RUN TIME: 171 Specimen Inquiry PHYSICIAN Patient: LESLY WILSON I [id number] (Continued) Specimen: [id number] Collected: 10/28/16-1144 Received: 10/28/16-1424 (Continued) Procedure Result Verified Site RESP SYNCYTIAL VIRUS PCR Final 10/28/16-1709 Not Detected Microbiology (Continued) CHLAMDOPHILIA PNEUMONIAE PCR Final 10/28/16-1709 Not Detected MYCOPLASMA PNEUMONIAE PCR Final 10/28/16 MYCO PNEUMONIAE PCR Not Detected -------- X-Rays, CTs and MRIs Chest Xray 10/28/16 IMPRESSION: 1. Upper lobe airspace disease is most suggestive of pneumonia. Hypersensitivity pneumonitis or atypical presentation of pulmonary edema may also have this appearance. 2. Moderate pulmonary vascular congestion. Chari B-lines are suggestive of pulmonary edema. Please correlate clinically. Dictated by: Rolf Disla M.D. on 10/28/2016 at 8:48 Approved by: Rolf Disla M.D. on 10/28/2016 at 8:53 Repeat CXR 10/29/16 IMPRESSION: 1. Persistent but decreased bilateral confluent airspace opacities in the upper lung zones are nonspecific but likely reflect consolidation and pneumonia. However, the differential is broad and correlation is recommended clinically as well as further evaluation with CT if indicated. 2. Increased left retrocardiac consolidation or atelectasis. Dictated by: Flavio Arellano M.D. on 10/29/2016 at 9:45 Approved by: Flavio Arellano M.D. on 10/29/2016 at 9:47 Cardiac Echo Impressions ECHO on 10/28/16 Interpretation Summary 1) Normal left ventricular thickness and size with severely reduced systolic function (EF 25-30%). 2) Severe global hypokinesis of the apical 2/3 of the LV. 3) No significant valvular abnormalities. 4) Compared to the Echo done 07/23/2016, LV function has decreased from normal to severely reduced on today's study. Reading Physician:01:13 PM ECHO on 10/30/16 Interpretation Summary The left ventricle is normal in size. The ejection fraction is estimated to be 40-45%. Compared to the prior exam, left ventricular function is moderately improved. Basal segments are more hypercontractile compared to exam from two days ago. There is also improvement in the apical contractility. Mid and distal segments are still significantly hypokinetic. There is no LV thrombus. Additional Diagnostics Cardiac Cath on 10/27/16 ANGIOGRAPHIC FINDINGS: 1. Right coronary artery is dominant, free of any significant disease. Mild luminal irregularities are noted. 2. LAD transapical vessels. Mild luminal irregularities of 10% to 20% in the mid segment past the second major diagonal. No critical stenosis is noted. 3. Circumflex is a nondominant, small vessel free of any significant disease. 4. Left heart catheterization revealed an LVEDP that ranged from 27-30. Hand injection showed hypercontractile basal constrictors with the distal half of the LV ring akinetic to dyskinetic suggestive of stress cardiomyopathy. In summary, no significant fixed epicardial coronary artery disease. Delmar Skelton MD 10/27/16 5642 Assessment & Plan Ms. Lesly Wilson is an extremely pleasant 76-year-old female with a history of type II diabetes with polyneuropathy, hypothyroidism, hypertension, who presented to her PCP, [facility], with chief complaint of sudden onset of left-sided chest pain with radiation to her left arm and left side of neck, which followed the rupture of her left tympanic membrane. Initial EKG performed at [facility] revealed ST elevation, patient was immediately given metoprolol, morphine, and heparin. Stat cath completed at our facility revealed a likely etiology of her chest pain as stress-induced cardiomyopathy. She was admitted for evaluation and treatment of stress-induced cardiomyopathy in the setting of suspected underlying otic infection and pneumonia. The goal for today is to continue diuresing with Lasix that was decreased to 20 milligrams daily, change antibiotics from aztreonam to Unasyn, try to decrease supplemental oxygen as tolerated, use incentive spirometer/acappella and ambulate. Non-ischemic cardiomyopathy likely Stress-induced cardiomyopathy, acute, present on admission, under evaluation -Likely secondary to community-acquired pneumonia - CC: Left-sided chest pain with radiation to left upper extremity and neck; stat EKG was indicative of ST elevation in leads V2-V5 - Stat cath: 10/27/2016 revealed findings indicative of stress-induced cardiomyopathy -Repeat chest x-ray shows decreasing volume overload and this is consistent with her much improved respiratory distress with diuresis. - Patient receiving furosemide 40 mg po daily - Continue spironolactone 12.5mg daily -Per cardiology, cut down losartan from 50 mg to 25 mg daily to optimize beta-arvind. Increase carvedilol to 6.25 mg twice a day. -On 11/01/2016 cut down Lasix from 40 to 20 mg daily -She was given heparin gtt due to high risk for LV thrombus formation but this was stopped - intermittent epistaxis, as well as coughing up some dark phlegm, per cardiology, will stop IV heparin -repeated a limited echocardiogram on 10/31/2016 showed left ventricular function is moderately improved and no LV thrombus. Ejection fraction is estimated to be 40-45%. - Recommend followup with Cardiology as an outpatient with Dr. Skelton in two weeks with electrolytes. Acute systolic heart failure, present on admission, under evaluation -Likely secondary to nonischemic cardiomyopathy as coronary angiography did not show any obstructive coronary artery disease. - Echo revealed Normal left ventricular thickness and size with severely reduced systolic function (EF 25-30%) compared to ECHO done in 06/2016 -repeated a limited echocardiogram on 10/31/2016 showed left ventricular function is moderately improved and no LV thrombus. Ejection fraction is estimated to be 40-45%. -On 11/01/2016 cut down Lasix from 40 to 20 mg daily Acute Hypoxemic Respiratory Failure, present on admission, resolving -likely secondary to pneumonia and stress cardiomyopathy with resultant pulmonary edema -Patient was initially on high flow oxygen -Now down to Room air- 2L supplemental oxygen -Patient has been using incentive spirometry and Acappella Community-acquired Pneumonia secondary to Haemophilus influenza, ongoing -As evidenced by Chest X-Ray -Procalcitonin increased from 0.07 to 0.13, WBC 12.7 -Today, pro-calcitonin decreased to 0.26, WBC went down to 14.3 -Repeat procalcitonin in the am -Lactic acid normalized to 1.1 -respiratory PCR analysis has been negative thus far -sputum cultures grew H. Influenza, resistant to beta-lactam. -Patient was given augmentin and azithromycin -Discontinue antibiotics and switched to 2 g ceftriaxone and azithromycin. These were all discontinued as bacteria is beta lactam resistant -Stop aztreonam and switch to Unasyn, sensitivities show patient may be discharged on Augmentin or doxycycline Electrolyte abnormalities, present on admission, under evaluation -Correct phosphate, magnesium and potassium -Recheck of labs showed improved potassium and magnesium Left tympanic membrane rupture, acute, present on admission, under evaluation - Patient had evidence of blood within left ear canal - Patient reports URI/viral infection as etiology, as discussed with her primary care - We will obtain respiratory swab to further delineate viral versus bacterial etiology for her vague/mild URI sx - Also initiation of Augmentin x14d, as pt is diabetic, risk for pseudomonas otitis - No otic ofloxacin secondary to pt allergy to fluoroquinolones - Strong consideration of ENT referral for prompt/stat FU when discharged - Pt reports established with Dr. Cruz in [place]- pt would like to be seen by his practice if possible Acute hypoxemia, present on admission,ongoing -This morning, patient complained of SOB -Likely secondary to acute systolic heart failure and possible upper lobe pneumonia -Morning ABGs revealed evidence of hypoxemia, which resolved with High flow Oxygen -Continue to monitor oxygen saturation Minimal CAD, present on admission, ongoing - Continue aspirin 81mg daily - Continue atorvastatin 10mg qhs History of diabetes with peripheral nephropathy, non-insulin using, chronic, presumed stable - Home medications include metformin - Holding metformin during hospitalization - Institution of low-dose correctional scale - Continue Gabapentin nightly Hypertension, chronic, well-controlled - We will resume home medications, including losartan, and initiation of metoprolol secondary to stress-induced cardiomyopathy treatment - Anti-hypertensive medications as above Insomnia, chronic, presumed stable - Patient reports new medication of Ambien to help with sleep aid - Due to patient's naivety to medication, we will not initiate this medication during this hospitalization - Attempt gabapentin, and other modalities for sleep Hypothyroidism, chronic, stable -Most recent TSH 1.050 -Continue levothyroxine PRN fever, bowel, nausea, pain DVT: Hep subcutaneous Diet: Heart/carb GI: H2B Code: FULL CODE Disposition: Patient need for supplemental oxygen has decreased. Given continued improvement of her pneumonia, respiratory, and ambulatory status, we discussed the possibility of discharging tomorrow. GI Prophylaxis: H2 arvind VTE Prophylaxis: Other (stopped heparin drip due to bleeding) VTE Mechanical Devices: Intermittant Pneumatic CD Resuscitation Status: CPR: Attempt Resuscitation Attending Statement The patient was seen and examined together with Dr. Sr on 11/03/16 and I have added additional information to the note above. Kenzie Sr DO Nov 03, 2016 06:20 Dominga Guthrie DO Nov 08, 2016 15:55
[2016-11-03] MEDS: Ampicillin-Sulbactam Inj 1,500 MG in 0.9% Sodium Chloride 50 ML IV SCH ×2 (16:09→20:12)
[2016-11-04] MEDS: Ampicillin-Sulbactam Inj 1,500 MG in 0.9% Sodium Chloride 50 ML IV SCH ×2 (02:20→09:03)
[2016-11-04 03:06] VITALS: BP 95/58; PULSE 70; RESP 16; O2SAT 93
[2016-11-04 03:20] LABS: Mean Corpuscular Hemoglobin 29.1 pg (27.0-35.0); Mean Corpuscular Volume 87.1 fL (81-100); Platelet Count 415 bil/L (150-400)
[2016-11-04 03:54] LABS: BASOPHILS % (AUTO) 0 % (0-3); EOSINOPHILS % (AUTO) 2 % (0-5); MONOCYTES % (AUTO) 8 % (4-12); NEUTROPHILS % (AUTO) 52 % (40-74)
[2016-11-04 07:45] VITALS: BP 93/55; PULSE 75; RESP 16; O2SAT 93
[2016-11-04] MEDS: Heparin 5,000 Unit/mL Inj SUBQ SCH (08:58)
[2016-11-04] MEDS: Insulin LISPRO 300 Unit/3 mL Inj SUBQ SCH ×2 (09:03→12:33)
[2016-11-04 10:33] VITALS: BP 88/52; PULSE 79; RESP 16; O2SAT 92
[2016-11-04 10:35] VITALS: BP 96/57; PULSE 72; PULSE 82
[2016-11-04 10:37] VITALS: BP 91/61; PULSE 86; O2SAT 94
[2016-11-04 11:58] VITALS: BP 91/60; PULSE 73; O2SAT 94
--- NOTE | 2016-11-04 14:13 | PCM.DIMED ---
Kenzie Sr DO 11/04/16 1413: Discharge Instructions Date of Service Nov 04, 2016 Dates of Hospitalization Oct 27, 2016 at 20:23 Discharge Diagnosis Discharge Diagnosis Non-ischemic cardiomyopathy likely Stress-induced cardiomyopathy Acute systolic heart failure Acute Hypoxemic Respiratory Failure Community-acquired Pneumonia secondary to Haemophilus influenza Left tympanic membrane rupture Acute hypoxemia Minimal CAD History of diabetes with peripheral nephropathy Hypertension Insomnia Hypothyroidism Diet Discharge Diet: Diabetic Activity Discharge Activity: No restrictions, Other (activity as tolerated) Call your provider Call your provider for: Fever or Chills, Shortness of breath, Chest pain, Vomitting, Excessive diarrhea, Weakness (unilateral) Patient Instructions Patient Instructions When you presented to the hospital, you had a sudden onset of left-sided chest pain that radiated to her left arm and left side of the neck, which happened after the rupture of your left ear tympanic membrane. They did an EKG of your heart at [facility], which showed changes that were concerning so you are sent over to [facility] and you underwent a cardiac catheterization , which revealed that the likely etiology of your chest pain was stressed induced cardiomyopathy. In addition, the ultrasound of your heart showed a decrease ejection fraction of the heart 25-30% and results consistent with stressed induced cardiomyopathy. Stress induced cardiomyopathy is a heart condition that causes sudden chest pain, trouble breathing or fainting. It is often triggered by intense physical or emotional stress such as sudden medical illness. We believe that your stress induced cardiomyopathy was triggered by underlying pneumonia. What happens is that part of the heart stops working normally so the heart does not pump as well. This is usually not long lasting and people get completely better in 1-4 weeks. We did a repeat ultrasound of your heart and it did in fact show improvement. In fact, your ejection fraction increased to 40-45%. Cardiology started you on medications that will help your heart get better from this condition. This includes spironolactone 12.5mg daily, carvedilol to 6.25 mg twice a day, Lasix 20 mg daily, and valsartan 40 mg daily. You will followup with Cardiology, Dr. Skelton as an outpatient in two weeks and he will go over your heart medications and check electrolytes. As we discussed, we believe that your stress induced cardiomyopathy happened because you had pneumonia, which likely started out as an ear infection.Your sputum cultures grew Haemophilus Influenza, which is a bacteria that can also cause ear infections. We optimized your antibiotics to make sure that it was sensitive to the bacteria. Thus far, we have completed a 9 day course of antibiotics. You will need one more day in order to complete a 10 day course. We will send you home with one day of Augmentin 500 mg by mouth twice a day. In the beginning of your stay, you needed to be on high flow oxygen. However, over time we were able to stop giving you supplemental oxygen and your oxygen saturations were just fine. In addition, you participated well with physical therapy. We would still like for you to follow up on your left ear tympanic membrane rupture. We believe that this happened as a result of infection. Even though we have treated you for the infection, you still have decreased hearing and will need to follow up with an ear nose and throat doctor as an outpatient. We have arranged an appointment for you with Dr. Melendez at [facility] on November 16, 2016 at 9:10 am. Follow-up plan Follow-up with family care provider Dr. Jorge Voss, cardiology Dr. Skelton and ENT specialist Follow-up Provider: Jorge Voss MD Follow-up with PCP in: 1 week Provider: Delmar Skelton MD Follow-up in: 2 weeks Additional Information Please follow-up with ENT. We have arranged an appointment for you with Dr. Melendez at [facility] on November 16, 2016 at 9:10 am. Dominga Guthrie DO 11/04/16 1746: Discharge Instructions Attending's Statement The patient was seen and examined together with Dr. Sr on 11/04/2016 and I agree with the history, exam and plan as outlined in the note above. Kenzie Sr DO Nov 04, 2016 14:13 Dominga Guthrie DO Nov 04, 2016 17:46
[2016-11-04] MEDS ORDERED: SPIR25TA PO (14:29)
[2016-11-04] MEDS ORDERED: AMOX-363 PO (14:29)
[2016-11-04] MEDS ORDERED: CARV3.122 PO (14:29)
[2016-11-04] MEDS ORDERED: VALS80TA25 PO (14:29)
[2016-11-04] MEDS ORDERED: FURO40TA4 PO (14:29)
--- NOTE | 2016-11-04 18:23 | PCM.DC.MED ---
Discharge Summary Date of Service Nov 04, 2016 Dates of Hospitalization Date of Hospital Admission Oct 27, 2016 at 20:23 Date of Discharge: Nov 04, 2016 Providers: Admitting Physician: Rena Liz DO Primary Care Physician: Madyson Hdez PA-C Attending Physician: Dominga Guthrie DO Diagnosis at Time of Discharge Diagnosis at Time of Discharge Non-ischemic cardiomyopathy likely Stress-induced cardiomyopathy, present on admission, improved Acute systolic heart failure, present on admission, improved Acute Hypoxemic Respiratory Failure, present on admission, resolved Community-acquired Pneumonia secondary to Haemophilus influenza, present on admission, resolving Left tympanic membrane rupture, present on admission, ongoing Acute hypoxemia, resolved Minimal CAD, chronic History of diabetes with peripheral nephropathy Hypertension Insomnia Hypothyroidism Consultations Cardiology, Dr. Nolen and Dr. Olea were consulted. Procedures XRay, CTs & MRIs Chest Xray 10/28/16 IMPRESSION: 1. Upper lobe airspace disease is most suggestive of pneumonia. Hypersensitivity pneumonitis or atypical presentation of pulmonary edema may also have this appearance. 2. Moderate pulmonary vascular congestion. Chari B-lines are suggestive of pulmonary edema. Please correlate clinically. Dictated by: Rolf Disla M.D. on 10/28/2016 at 8:48 Approved by: Rolf Disla M.D. on 10/28/2016 at 8:53 Repeat CXR 10/29/16 IMPRESSION: 1. Persistent but decreased bilateral confluent airspace opacities in the upper lung zones are nonspecific but likely reflect consolidation and pneumonia. However, the differential is broad and correlation is recommended clinically as well as further evaluation with CT if indicated. 2. Increased left retrocardiac consolidation or atelectasis. Dictated by: Flavio Arellano M.D. on 10/29/2016 at 9:45 Approved by: Flavio Arellano M.D. on 10/29/2016 at 9:47 Cardiac Echo Impression ECHO on 10/28/16 Interpretation Summary 1) Normal left ventricular thickness and size with severely reduced systolic function (EF 25-30%). 2) Severe global hypokinesis of the apical 2/3 of the LV. 3) No significant valvular abnormalities. 4) Compared to the Echo done 07/23/2016, LV function has decreased from normal to severely reduced on today's study. Reading Physician:01:13 PM ECHO on 10/30/16 Interpretation Summary The left ventricle is normal in size. The ejection fraction is estimated to be 40-45%. Compared to the prior exam, left ventricular function is moderately improved. Basal segments are more hypercontractile compared to exam from two days ago. There is also improvement in the apical contractility. Mid and distal segments are still significantly hypokinetic. There is no LV thrombus. Other Diagnostics Cardiac Cath on 10/27/16 ANGIOGRAPHIC FINDINGS: 1. Right coronary artery is dominant, free of any significant disease. Mild luminal irregularities are noted. 2. LAD transapical vessels. Mild luminal irregularities of 10% to 20% in the mid segment past the second major diagonal. No critical stenosis is noted. 3. Circumflex is a nondominant, small vessel free of any significant disease. 4. Left heart catheterization revealed an LVEDP that ranged from 27-30. Hand injection showed hypercontractile basal constrictors with the distal half of the LV ring akinetic to dyskinetic suggestive of stress cardiomyopathy. In summary, no significant fixed epicardial coronary artery disease. Delmar Skelton MD 10/27/16 2993 Brief History Ms. Lesly Momin is an extremely pleasant 76-year-old female with a history of type II diabetes with polyneuropathy, hypothyroidism, hypertension, and hypothyroidism, presented to her PCP, then transitioned to [facility], with chief complaint of sudden onset of left-sided chest pain with radiation to her left arm and left side of neck, which was followed by a rupture of her left tympanic membrane. Initial EKG performed at [place] revealed ST elevation, patient was immediately given metoprolol, morphine, and heparin. Stat cath completed at our facility revealed a likely etiology of her chest pain as stress-induced cardiomyopathy, without any evidence of coronary artery disease. She was admitted for evaluation and treatment of stress-induced cardiomyopathy in the setting of suspected underlying otic infection and community acquired pneumonia with Haemophilus Influenza. Patient experienced acute hypoxemic respiratory failure, requiring high flow oxygen due to pneumonia. Patient responded well to antibiotics and repeat ECHO showed improvement of her stress cardiomyopathy. She received a total of 9 days of antibiotics. She will go home with one more day of Augmentin to complete a 10 day course. The patient will follow up with ENT as an out patient. Hospital Course Ms. Lesly Momin is an extremely pleasant 76-year-old female with a history of type II diabetes with polyneuropathy, hypothyroidism, hypertension, who presented to her PCP, then [facility], with chief complaint of sudden onset of left-sided chest pain with radiation to her left arm and left side of neck, which followed the rupture of her left tympanic membrane. Non-ischemic cardiomyopathy likely Stress-induced cardiomyopathy, acute, present on admission, improved -Likely secondary to community-acquired pneumonia - CC: Left-sided chest pain with radiation to left upper extremity and neck; stat EKG was indicative of ST elevation in leads V2-V5 - Stat cath: 10/27/2016 revealed findings indicative of stress-induced cardiomyopathy -Repeat chest x-ray shows decreasing volume overload and this is consistent with her much improved respiratory distress with diuresis. - Patient receiving furosemide 40 mg po daily - Continue spironolactone 12.5mg daily -Per cardiology, stop home dose of Losartan and start valsartan 40 mg beta-arvind. Increase carvedilol to 6.25 mg twice a day. -On 11/01/2016 cut down Lasix from 40 to 20 mg daily -She was given heparin gtt due to high risk for LV thrombus formation but this was stopped - intermittent epistaxis, as well as coughing up some dark phlegm, per cardiology, stopped IV heparin -repeated a limited echocardiogram on 10/31/2016 showed left ventricular function is moderately improved and no LV thrombus. Ejection fraction is estimated to be 40-45%. - Recommend followup with Cardiology as an outpatient with Dr. Skelton in two weeks with electrolytes. Acute systolic heart failure, present on admission, improved -Likely secondary to nonischemic cardiomyopathy as coronary angiography did not show any obstructive coronary artery disease. - Echo revealed Normal left ventricular thickness and size with severely reduced systolic function (EF 25-30%) compared to ECHO done in 06/2016 -repeated a limited echocardiogram on 10/31/2016 showed left ventricular function is moderately improved and no LV thrombus. Ejection fraction is estimated to be 40-45%. -On 11/01/2016 cut down Lasix from 40 to 20 mg daily Acute Hypoxemic Respiratory Failure, present on admission, resolved -likely secondary to pneumonia and stress cardiomyopathy with resultant pulmonary edema -Patient was initially on high flow oxygen -Now down to Room air- 2L supplemental oxygen -Patient has been using incentive spirometry and [place] Community-acquired Pneumonia secondary to Haemophilus influenza, resolving -As evidenced by Chest X-Ray -Procalcitonin increased from 0.07 to 0.13, WBC 12.7 -Today, pro-calcitonin decreased to 0.26, WBC went down to 14.3 -Repeat procalcitonin in the am -Lactic acid normalized to 1.1 -respiratory PCR analysis has been negative thus far -sputum cultures grew H. Influenza, resistant to beta-lactam. -Patient was given augmentin and azithromycin -Discontinue antibiotics and switched to 2 g ceftriaxone and azithromycin. These were all discontinued as bacteria is beta lactam resistant -Stop aztreonam and switch to Unasyn, sensitivities show patient may be discharged on Augmentin or doxycycline Electrolyte abnormalities, present on admission, resolved -Correct phosphate, magnesium and potassium -Recheck of labs showed improved potassium and magnesium Left tympanic membrane rupture, acute, present on admission, under evaluation - Patient had evidence of blood within left ear canal - Patient reports URI/viral infection as etiology, as discussed with her primary care - We will obtain respiratory swab to further delineate viral versus bacterial etiology for her vague/mild URI sx - Follow-up with [facility] ENT as instructed Acute hypoxemia, present on admissionresolved -This morning, patient complained of SOB -Likely secondary to acute systolic heart failure and possible upper lobe pneumonia -Morning ABGs revealed evidence of hypoxemia, which resolved with High flow Oxygen -Patient was discharged without needing supplemental oxygen Minimal CAD, present on admission, ongoing - Continue aspirin 81mg daily - Continue atorvastatin 10mg qhs History of diabetes with peripheral nephropathy, non-insulin using, chronic, presumed stable - Home medications include metformin - Holding metformin during hospitalization - Institution of low-dose correctional scale - Continue Gabapentin nightly Hypertension, chronic, well-controlled - We will resume home medications, including losartan, and initiation of metoprolol secondary to stress-induced cardiomyopathy treatment - Anti-hypertensive medications as above Insomnia, chronic, presumed stable - Patient reports new medication of Ambien to help with sleep aid - Due to patient's naivety to medication, we will not initiate this medication during this hospitalization - Attempt gabapentin, and other modalities for sleep Hypothyroidism, chronic, stable -Most recent TSH 1.050 -Continue levothyroxine Exam Vital Signs (Last) Date Time Temp Pulse Resp B/P Pulse Ox O2 Delivery O2 Flow Rate FiO2 11/04/16 11:58 36.7 73 91/60 94 Room Air 11/04/16 10:33 16 11/03/16 07:56 5.00 10/29/16 11:48 60 Exam General: Patient is lying comfortably on bed, AAOX3, not in acute distress, cooperative and pleasant, was seen ambulating with physical therapy today without supplemental oxygen HEENT: head normocephalic and atraumatic, PERRLA, EOMI, no scleral icterus, noninjected conjunctiva, evidence of nasal congestion, left ear with dry, crusted blood on the external ear canal, evidence of ruptured tympanic membrane Neck: neck supple, non-tender, no lymphadenopathy, trachea midline, no JVD CV: regular rate and rhythm, s1 and s2 heard, no murmur, radial pulses 2+ and equal bilaterally, no rubs murmurs or gallops, no edema Lungs: decreased crackles on lung bases bilaterally, upper lobe aeration sounds improved, now saturations in the 90s on room air Abdomen: normoactive bowel sounds on 4Q, soft, non-distended, non-tender to palpation, no organomegally, Skin: warm and dry Musculoskeletal: 5/5 UE and LE strength bilaterally, full ROM bilaterally Neuro: Grossly neurologically intact, cranial nerves II through XII intact, Psych: Normal mood and affect Test 10/28/16 03:00 10/28/16 03:55 10/28/16 04:18 10/28/16 07:10 Urine Legionella pneumophilia Ag Negative (Negative) Hemoglobin A1c 7.0% (4.8-5.6) Thyroid Stimulating Hormone (TSH) 1.050uIU/mL (0.450-4.500) Urine Color Yellow (YELLOW) Urine Appearance Clear (CLEAR,HAZY) Urine pH 6.5 (5.0-8.0) Urine Specific [place] 1.010 (1.003-1.035) Urine Protein Negativemg/dL (NEG,TRACE) Urine Glucose (UA) Negativemg/dL (NEGATIVE) Urine Ketones Negativemg/dL (NEGATIVE) Urine Occult Blood Negative (NEGATIVE) Urine Nitrite Negative (NEGATIVE) Urine Bilirubin Negative (NEGATIVE) Urine Urobilinogen Normalmg/dL (NORMAL) Urine Leukocyte Esterase Small (NEGATIVE) Urine RBC 0-2/hpf (0-2) Urine WBC >50/hpf (0-5) Urine Epithelial Cells Moderate/hpf (NONE-MOD) Urine Crystals None seen (NONE SEEN) Urine Bacteria Few/hpf (NONE-FEW) Urine Hyaline Casts None/lpf (NONE) Urine Granular Casts None seen (NONE SEEN) Urine Waxy Casts None seen (NONE SEEN) Urine Red Blood Cell Casts None seen (NONE SEEN) Urine White Blood Cell Casts None seen (NONE SEEN) Urine Mucus None seen (None Seen) Urine Trichomonas None seen (NONE SEEN) Urine Yeast None (NONE SEEN) Urinalysis Comment None Urine Culture Reflexed Indicated D-Dimer < 0.50mg/L FEU (<0.50) Test 10/28/16 14:31 10/28/16 14:55 10/28/16 16:41 10/30/16 02:50 Total Creatine Kinase 175U/L (21-215) Creatine Kinase MB 18.5ng/mL (0.0-5.3) Creatine Kinase MB % 10.6% (0.0-5.0) Troponin T 0.538ug/L (0.0-0.011) Hold [place] Top Tube Received (Received) Hold Urine Received (Received) Activated Partial Thromboplast Time 61.5sec (22.8-33.0) Phosphorus Level 2.0mg/dL (2.5-4.9) Magnesium Level 2.2mg/dL (1.6-2.6) Test 11/03/16 03:00 11/04/16 03:05 Lactic Acid Level 0.8mmol/L (0.4-2.0) Procalcitonin 0.11ng/mL (0.00-0.08) White Blood Count 11.3th/mm3 (3.8-10.1) Red Blood Count 3.95mil/mm3 (3.90-5.20) Hemoglobin 11.5g/dL (12.0-15.6) Hematocrit 34.4% (35.0-46.0) Mean Corpuscular Volume 87.1fL (81-100) Mean Corpuscular Hemoglobin 29.1pg (27.0-35.0) Mean Corpuscular Hemoglobin Concent 33.4% (32.0-37.0) Red Cell Distribution Width 12.7% (12.3-15.4) Platelet Count 415bil/L (150-400) Neutrophils (%) (Auto) 52% (40-74) Lymphocytes (%) (Auto) 31% (14-46) Monocytes (%) (Auto) 8% (4-12) Eosinophils (%) (Auto) 2% (0-5) Basophils (%) (Auto) 0% (0-3) Band Neutrophils % 5% (1-5) Metamyelocytes % 2% (0-0) Hematology Comments Sodium Level 136mEq/L (134-144) Potassium Level 4.9mEq/L (3.5-5.2) Chloride Level 98mEq/L (97-108) Carbon Dioxide Level 24mmol/L (18-29) Blood Urea Nitrogen 33mg/dL (8-27) Creatinine 0.80mg/dL (0.57-1.00) Estimat Glomerular Filtration Rate 100mL/min (>59) Glucose Level 192mg/dL (60-99) Calcium Level 9.3mg/dL (8.5-10.1) Total Bilirubin 0.3mg/dL (0.0-1.2) Aspartate Amino Transf (AST/SGOT) 24U/L (0-50) Alanine Aminotransferase (ALT/SGPT) 54U/L (0-32) Alkaline Phosphatase 102U/L (25-165) Total Protein 6.7g/dL (6.4-8.4) Albumin 3.3g/dL (3.4-5.0) Hold [place] Top Tube Received (Received) Microbiology Results Microbiology ALLISON CULT SPUTUM GS Final 10/29/16 SPT GRAM STAIN MODERATE POLYS RARE EPITHELIAL CELLS FEW MIXED NORMAL DENAE MANY GRAM NEG RODS This Spec is of good Quality and acceptable for Cult RESPIRATORY CULTURE Preliminary 10/30/16 Organism 1 HAEMOPHILUS INFLUENZAE COLONY COUNT/QUANTITY HEAVY GROWTH SENSITIVITY COMMENTS Susceptibilty testing to follow. BETA LACTAM (CEFINASE) RESISTANT Organism 2 WITH NORMAL DENAE COLONY COUNT/QUANTITY SCANT GROWTH BETA LACTAM (CEFINASE) RESISTANT Microbiology ADENOVIRUS RESPIRATORY PCR Final 10/28/16 Not Detected CORONOVIRUS 229E Final 10/28/16 Not Detected CORONOVIRUS HKU1 Final 10/28/16 Not Detected CORONOVIRUS NL63 Final 10/28/16 Not Detected CORONOVIRUS OC43 Final 10/28/161709 Not Detected INFLUENZA A PCR Final 10/28/16-1709 Not Detected INFLUENZA B PCR Final 10/28/16-1709 Not Detected METAPNEUMOVIRUS PCR Final 10/28/16-1709 Not Detected RHINOVIRUS OR ENTEROVIRUS PCR Final 10/28/16-1709 Not Detected PARAINFLUENZA 1 PCR Final 10/28/16-1709 Not Detected PARAINFLUENZA 2 PCR Final 10/28/16 Not Detected PARAINFLUENZA 3 PCR Final 10/28/16-1709 Not Detected PARAINFLUENZA 4 PCR Final 10/28/16-1709 Not Detected CONTINUED ON NEXT PAGE RUN DATE: 10/28/16 [facility] LIVE PAGE 2 RUN TIME: 171 Specimen Inquiry PHYSICIAN Patient: LESLY MOMIN I [id number] (Continued) Specimen: [id number] Collected: 10/28/16-1144 Received: 10/28/16-1424 (Continued) Procedure Result Verified Site RESP SYNCYTIAL VIRUS PCR Final 10/28/16 Not Detected Microbiology (Continued) CHLAMDOPHILIA PNEUMONIAE PCR Final 10/28/16 Not Detected MYCOPLASMA PNEUMONIAE PCR Final 10/28/16 MYCO PNEUMONIAE PCR Not Detected -------- Discharge Medications Discharge Medications Amoxicillin/Clav K 500-125 mg (Augmentin 500-125 mg) 1 Each Tablet 1 TABLET PO BID Prescribed by: Kyaw HERNANDEZ Aspirin (Aspirin) 81 Mg Tablet 81 MG PO HS (Reported) Atorvastatin (Lipitor) 10 Mg Tab 10 MG PO HS (Reported) Carvedilol (Carvedilol) 3.125 Mg Tablet 6.25 MG PO BID Prescribed by: Kyaw HERNANDEZ Cholecalciferol (Vitamin D3) (Vitamin D) 1,000 Unit Capsule 1,000 UNIT PO DAILY (Reported) Folic Acid (Folic Acid) 0.4 Mg Tablet 0.4 MG PO DAILY (Reported) Furosemide (Furosemide) 40 Mg Tablet 20 MG PO DAILY Prescribed by: Kyaw HERNANDEZ Gabapentin (Gabapentin) 100 Mg Capsule 400 MG PO HS (Reported) Gluc 2Kcl/Chondr/Ade Hy/Hy AC (Glucosamine & Chondroitin Cap) 1 Each Capsule 1 EACH PO DAILY (Reported) Lactobacillus Combo No.11 (Probiotic) 1 Each Cap.sprink 1 EACH PO DAILY ( Reported) Latanoprost (Latanoprost) 2.5 Ml Drops 1 DROP BOTH_EYES HS (Reported) Levothyroxine (Synthroid) 75 Mcg Tablet 75 MCG PO DAILY (Reported) Metformin (Glucophage) 1,000 Mg Tablet 1,000 MG PO BID (Reported) Multivitamin (Once Daily) 1 Each Tablet 1 EACH PO DAILY (Reported) Nitroglycerin SL (Nitroglycerin SL) 0.4 Mg Tab.subl 0.4 MG SL Q5MIN (Reported) Spironolactone (Aldactone) 25 Mg Tablet 12.5 MG PO DAILY Prescribed by: Kyaw HERNANDEZ Ubidecarenone/Vit E Acetate (Co Q-10 100 mg Softgel) 1 Each Capsule 1 EACH PO DAILYWL (Reported) Valsartan (Valsartan) 80 Mg Tablet 40 MG PO HS Prescribed by: Kyaw HERNANDEZ As needed ([tumeric]) 400 MG PO DAILY PRN PRN For Dyspepsia or Heartburn (Reported) Acetaminophen (Acetaminophen) 325 Mg Tablet 325-975 MG PO Q4H PRN PRN For Pain ( Reported) Carisoprodol (Carisoprodol) 350 Mg Tablet 350 MG PO q8h PRN PRN PRN For Pain ( Reported) Followup Plan Disposition: Patient will discharge to home Follow-up plan Follow-up with family care provider Dr. Jorge Voss, cardiology Dr. Skelton and ENT specialist Discharge Diet: Diabetic Discharge Activity: No restrictions, Other (activity as tolerated) Patient Instructions When you presented to the hospital, you had a sudden onset of left-sided chest pain that radiated to her left arm and left side of the neck, which happened after the rupture of your left ear tympanic membrane. They did an EKG of your heart at [facility], which showed changes that were concerning so you are sent over to [facility] and you underwent a cardiac catheterization , which revealed that the likely etiology of your chest pain was stressed induced cardiomyopathy. In addition, the ultrasound of your heart showed a decrease ejection fraction of the heart 25-30% and results consistent with stressed induced cardiomyopathy. Stress induced cardiomyopathy is a heart condition that causes sudden chest pain, trouble breathing or fainting. It is often triggered by intense physical or emotional stress such as sudden medical illness. We believe that your stress induced cardiomyopathy was triggered by underlying pneumonia. What happens is that part of the heart stops working normally so the heart does not pump as well. This is usually not long lasting and people get completely better in 1-4 weeks. We did a repeat ultrasound of your heart and it did in fact show improvement. In fact, your ejection fraction increased to 40-45%. Cardiology started you on medications that will help your heart get better from this condition. This includes spironolactone 12.5mg daily, carvedilol to 6.25 mg twice a day, Lasix 20 mg daily, and valsartan 40 mg daily. You will followup with Cardiology, Dr. Skelton as an outpatient in two weeks and he will go over your heart medications and check electrolytes. As we discussed, we believe that your stress induced cardiomyopathy happened because you had pneumonia, which likely started out as an ear infection.Your sputum cultures grew Haemophilus Influenza, which is a bacteria that can also cause ear infections. We optimized your antibiotics to make sure that it was sensitive to the bacteria. Thus far, we have completed a 9 day course of antibiotics. You will need one more day in order to complete a 10 day course. We will send you home with one day of Augmentin 500 mg by mouth twice a day. In the beginning of your stay, you needed to be on high flow oxygen. However, over time we were able to stop giving you supplemental oxygen and your oxygen saturations were just fine. In addition, you participated well with physical therapy. We would still like for you to follow up on your left ear tympanic membrane rupture. We believe that this happened as a result of infection. Even though we have treated you for the infection, you still have decreased hearing and will need to follow up with an ear nose and throat doctor as an outpatient. We have arranged an appointment for you with Dr. Melendez at [facility]NT on November 16, 2016 at 9:10 am. Follow-up Provider: Jorge Voss MD Follow-up with PCP in: 1 week Provider: Delmar Skelton MD Follow-up in: 2 weeks Time spent Greater than 35 minutes Attending Statement The patient was seen and examined together with Dr. Sr on 11/04/16 and I have added additional information to the note above. copies to: Mekhi Melendez MD; Jorge Voss MD; Delmar Skelton MD, Alexa N DO Nov 04, 2016 18:23 Dominga Guthrie DO Nov 05, 2016 21:33
== END 2016-11-04 16:50 | disposition home or self-care (01) | DRG 286 ==
LOC: SED 20:15 → CCU 20:23 → PCC 10-28 07:50
PROVIDERS: ADMIT Internal Medicine; ATTEND Internal Medicine
PROC: B2111ZZ Fluoroscopy of Multiple Coronary Arteries using Low Osmolar Contrast (ICD-10-PCS; principal; 2016-10-27)
PROC: 4A023N7 Measurement of Cardiac Sampling and Pressure, Left Heart, Percutaneous Approach (ICD-10-PCS; 2016-10-27)
PROC: B2151ZZ Fluoroscopy of Left Heart using Low Osmolar Contrast (ICD-10-PCS; 2016-10-27)
PROC: 4A033R1 Measurement of Arterial Saturation, Peripheral, Percutaneous Approach (ICD-10-PCS; 2016-10-28)
DX: I51.81 Takotsubo syndrome (principal); I50.21 Acute systolic (congestive) heart failure; J96.01 Acute respiratory failure with hypoxia; J14 Pneumonia due to Hemophilus influenzae; H66.92 Otitis media, unspecified, left ear; H72.92 Unspecified perforation of tympanic membrane, left ear; I10 Essential (primary) hypertension; Z79.82 Long term (current) use of aspirin; Z79.84 Long term (current) use of oral hypoglycemic drugs; E11.42 Type 2 diabetes mellitus with diabetic polyneuropathy; E03.9 Hypothyroidism, unspecified; G47.00 Insomnia, unspecified